=== PATIENT | male | born 1975 | race Caucasian/White ===

== ENCOUNTER 2021-01-07 12:59 | Inpatient (IN) | payer OTHER, SELFPAY ==
[2021-01-07] VITALS (11 sets, daily range): BP systolic 158–213; BP diastolic 88–132; PULSE 64–94; RESP 16; TEMP 37; O2SAT 96–99; BMI 36.1
--- NOTE | ~2021-01-07 | CT_ITS ---
EXAMINATION: CT ANGIOGRAM HEAD CT ANGIOGRAM NECK CLINICAL INFORMATION: Multi territorial stroke. COMPARISON: Brain MRI from 01/07/2021. TECHNIQUE: Initial noncontrast accountant cost imaging of the head and neck was performed. Noncontrast head CT was also performed. Test bolus sequences followed by intravenous administration 70 mL of Omnipaque 350. Helical imaging was performed in the axial plane from the aortic arch to the skull vertex. Delayed postcontrast imaging of the head was also performed. The data was processed at the electro mechanical technologist's workstation for generation of MIP sequences. Angled MIPs and volume rendered reformatted images were also generated at an offline 3D workstation. Stenoses are assessed in accordance with NASCET criteria unless otherwise indicated. This CT examination was performed using dose optimization techniques as appropriate, variously including the following: *Automated exposure control. *Adjustment of mA and/or kV according to patient size (this includes techniques or standardized protocols for targeted exams where dose is matched to indication/reason for exam; i.e. extremities or head). *Use of iterative reconstruction technique. DLP: 2576 mGy-cm FINDINGS: CT Head: Regions of hypoattenuation are again noted in the right aspect of the splenium of the corpus callosum, medial aspect of the right occipital lobe, and parasagittal anterior left frontal lobe. No new loss of quintana-white matter differentiation. There is no evidence of acute intracranial hemorrhage. No additional abnormal attenuation within the brain parenchyma. The ventricles are normal in size and configuration. No evidence for obstructive hydrocephalus. No abnormal mass effect or midline shift. No extra-axial fluid collections. No pathologic intra-axial enhancement or regional oligemia. No acute soft tissue or osseous abnormalities. Odontogenic in infiltration and periapical lucencies associated with the maxillary right 1st premolar. A 2.5 cm polypoid lesion fills the left middle meatus. Mild mucosal thickening in the paranasal sinuses. The mastoid air cells and middle ear cavities are clear. CT Neck: The thyroid gland and remaining cervical soft tissues are within normal limits. No significant abnormalities of the cervical spine. CT Upper Chest: The visualized lung apices and upper mediastinum are within normal limits. Neck CTA: Aortic Arch: Normal contour and caliber. Classic 3 vessel branching pattern of the aortic arch. Great Vessel Origins: No significant stenosis of the branch origins. Right Common Carotid Artery: No focal stenosis or occlusion. Cervical Right Internal Carotid Artery: Normal opacification without focal stenosis or occlusion. Left Common Carotid Artery: No focal stenosis or occlusion. Cervical Left Internal Carotid Artery: Normal opacification without focal stenosis or occlusion. Cervical Right Vertebral Artery: Co-dominant. No focal stenosis or occlusion. Cervical Left Vertebral Artery: Co-dominant. No focal stenosis or occlusion. Brain CTA: Intracranial Internal Carotid Arteries: Mild calcific atherosclerotic disease of the intracranial internal carotid arteries without occlusion or flow-limiting stenosis. Right Anterior Cerebral Artery: Normal A1 segment. Normal opacification of the distal TERESA segments. Left Anterior Cerebral Artery: Normal A1 segment. Normal opacification of the distal TERESA segments. Anterior Communicating Artery: Normal. Right Middle Cerebral Artery: Normal M1 segment of the MCA without focal stenosis or occlusion. Normal arborization of the distal segments. Left Middle Cerebral Artery: Normal M1 segment of the MCA without focal stenosis or occlusion. Normal arborization of the distal segments. Right Vertebral Artery: Normal V4 segment. Normal opacification of the proximal segments of the posterior inferior cerebellar artery. Left Vertebral Artery: Normal V4 segment. Normal opacification of the proximal segments of the posterior inferior cerebellar artery. Basilar Artery: Normal without focal stenosis or occlusion. Normal appearance of the proximal superior cerebellar arteries. Right Posterior Cerebral Artery: Normal P1 segment. Normal opacification of the distal [employer] segments. Left Posterior Cerebral Artery: Normal P1 segment. Normal opacification of the distal [employer] segments. Normal opacification of the superior sagittal, straight, transverse, and sigmoid sinuses. CT/CT angio head neck IMPRESSION: 1. Redemonstrated involving infarcts of the right aspect of the splenium of the corpus callosum, medial aspect of the right occipital lobe, and paracentral anterior left frontal lobe. No evidence of acute intracranial hemorrhage. 2. CTA of the head and neck without proximal occlusion or flow-limiting stenosis.
--- NOTE | ~2021-01-07 | US_ITS ---
EXAMINATION: US EXTRACRANIAL CAROTID DUPLEX, BILATERAL CLINICAL INFORMATION: Acute CVA COMPARISON: None TECHNIQUE: Real-time ultrasound and Doppler techniques (integrating B-mode 2-D vascular images, Doppler spectral analysis and color-flow Doppler imaging) were utilized to interrogate the extracranial carotid arteries, the vertebral arteries and proximal subclavian arteries bilaterally. The degree of stenosis is determined by criteria similar to NASCET. FINDINGS: Right Side: 1. There is very mild fibrocalcific atherosclerotic plaque seen in the bifurcation/proximal ICA region. 2. The common carotid artery PSV proximally is 103 cm/s and distally 79 cm/s. 3. The proximal internal carotid artery velocities are 78 cm/s systolic and 30 cm/s diastolic. 4. The proximal external carotid artery PSV is 87 cm/s. 5. The vertebral artery shows low resistance antegrade flow. 6. The subclavian artery waveforms are multiphasic. Left Side: 1. There is very mild probable calcific atherosclerotic plaque seen in the bifurcation/proximal ICA region. 2. The common carotid artery PSV proximally is 96 cm/s and distally 96 cm/s. 3. The proximal internal carotid artery velocities are 67 cm/s systolic and 32 cm/s diastolic. 4. The proximal external carotid artery PSV is 83 cm/s. 5. The vertebral artery shows low resistance antegrade flow. 6. The subclavian artery waveforms are multiphasic. US/US carotid duplex BI IMPRESSION: 1. RIGHT: No hemodynamically significant luminal diameter narrowing. Mild plaque formation resulting in less than 50% luminal diameter narrowing of the ICA. 2. LEFT: No hemodynamically significant luminal diameter narrowing. Mild plaque formation resulting in less than 50% luminal diameter narrowing of the ICA.
--- NOTE | ~2021-01-07 | MR_ITS ---
EXAMINATION: MR BRAIN WITHOUT AND WITH CONTRAST CLINICAL INFORMATION: Visual changes. Headache. Ischemia. COMPARISON: CT head from 01/07/2021. TECHNIQUE: MRI of the brain was obtained using routine sequences without and following the administration of 10 mL of Gadavist intravenous contrast. FINDINGS: There are regions of restricted diffusion within the right aspect of the splenium of the corpus callosum (extending to the midline) and within the medial aspect of the right occipital lobe. Associated expansile T2 FLAIR hyperintensity in these regions. No additional restricted diffusion There is also a small region of gyral and subcortical white matter edema within the parasagittal aspect of the anterior left frontal lobe associated patchy enhancement in this location without restricted diffusion. No evidence of acute or chronic hemorrhagic products on heme-sensitive imaging. No additional parenchymal signal abnormalities. The ventricles are normal in morphology and size. No hydrocephalus. No midline shift. Flattening of the pituitary gland. No abnormalities of the posterior fossa with normal appearance of the brainstem and cerebellum. Normal positioning of the cerebellar tonsils. Normal arterial and venous vascular flow voids are present. No additional abnormal contrast enhancement. Normal, homogeneous marrow signal. There is a T1 hyperintense well-circumscribed lesion expanding the left middle meatus, measuring 2.3 x 1 x 1.7 cm. Mild mucosal thickening in the remaining paranasal sinuses. No signal abnormalities within the mastoid. MR/MR head/brain wo/w con IMPRESSION: 1. 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 2. Subacute infarction of the parasagittal anterior left frontal lobe. Given the varied vascular territories and age of these abnormalities, findings are suggestive of central embolic phenomenon. 3. Expansile polypoid lesion filling the left middle medius.
--- NOTE | ~2021-01-07 | CT_ITS ---
EXAMINATION: CT HEAD WITHOUT CONTRAST CLINICAL INFORMATION: Visual changes. COMPARISON: None TECHNIQUE: Contiguous axial imaging was performed from the skull base to vertex without intravenous administration of contrast. This CT examination was performed using dose optimization techniques as appropriate, variously including the following: *Automated exposure control *Adjustment of mA and/or kV according to patient size (this includes techniques or standardized protocols for targeted exams where dose is matched to indication/reason for exam; i.e. extremities or head) *Use of iterative reconstruction technique DLP: 728 mGy-cm FINDINGS: There is no evidence of acute intracranial hemorrhage. No abnormal mass effect or midline shift is seen. Dumont to white matter differentiation is well preserved. No extra-axial fluid collections are identified. The ventricles are normal in size. There is a low-attenuation focus seen within the rightward splenium of the corpus callosum, with extension into the medial right occipital region towards the interface of the forceps major and the medial occipital cortex. The osseous structures and soft tissues are normal. The mastoid air cells and visualized portions of the paranasal sinuses are well aerated. CT/CT head/brain wo IV con IMPRESSION: There is abnormal low attenuation change within the rightward aspect of the splenium of the corpus callosum, extending into the interface of the medial occipital cortex and right forceps major. There is no significant associated mass effect. The possibilities of a demyelinating process, such as multiple sclerosis, and ischemia are raised. Infectious etiologies (including aspergillosis) and neoplasm (including glioma) are possible but less likely given the lack of associated mass effect. No acute hemorrhage is noted. Strongly recommend further evaluation at this time with MRI (with and without contrast).
[2021-01-07 14:16] LABS: Glucose, Whole Blood 500 mg/dL (60-115)
[2021-01-07 14:23] LABS: MANUAL DIFF FLAG NO
[2021-01-07 14:31] LABS: Basophils Absolute Auto 0.1 X10*3/uL (0.0-0.2); Basophils Percent Auto 0.4 % (0-2); Eosinophils Absolute Auto 0.2 X10*3/uL (0.0-0.4); Eosinophils Percent Auto 1.4 % (0-4); Hematocrit 44.3 % (42-52); Hemoglobin 15.4 g/dl (14.0-18.0); Imm Gran Abs Auto 0.04 X10*3/uL (0.00-0.03); Imm Gran Pct Auto 0.4 % (0.0-0.4); Lymphocytes Absolute Auto 1.9 X10*3/uL (1.2-4.9); Lymphocytes Percent Auto 16.6 % (20-40); Mean Corpuscular HGB Conc 34.8 g/dl (31.0-36.0); Mean Corpuscular Hemoglobin 30.9 pg (27.0-33.0); Mean Corpuscular Volume 88.8 fL (80-98); Mean Platelet Volume 11.4 fL (9.4-12.4); Monocytes Absolute Auto 0.7 X10*3/uL (0.1-1.2); Monocytes Percent Auto 6.1 % (2-11); Neutrophils Absolute Auto 8.4 X10*3/uL (2.0-8.3); Neutrophils Percent Auto 75.1 % (45-73); Platelet Count 210 X10*3/uL (160-400); Red Blood Count 4.99 X10*6/uL (4.60-5.80); Red Cell Distribution Width 11.5 % (11.0-16.0); White Blood Count 11.2 X10*3/uL (4.8-10.8)
--- NOTE | 2021-01-07 14:59 | PC.NURSE ---
NSR on tele, reports frontal headache to middle back of head. Pt states no meds at home x 2-3 months. Hypertensive. Iv established. awaiting ED provider. Pt also reports left eye blurred vision. Other neuros are intact, speech is clear. Family at bedside. Skin pwd.
[2021-01-07 15:02] LABS: Anion Gap 11 (12-20); Blood Urea Nitrogen 11 mg/dL (9-16); Calcium 9.5 mg/dL (8.4-10.2); Carbon Dioxide 27 mmol/L (22-29); Chloride 103 mmol/L (96-108); Creatinine Clr Calc Pharmacy 105.1; Estimated Glomerular Filt Rate > 60; Glucose Random 507 mg/dL (60-115); Potassium 4.2 mmol/L (3.3-5.1); Sodium 137 mmol/L (135-145)
[2021-01-07] MEDS: 0.9 % Sodium Chloride 1,000 ML 999 ML IV ×2 (16:00→17:40)
[2021-01-07 16:11] LABS: Venous Blood Gas Refer to POC result
[2021-01-07 16:12] LABS: VBG Base Excess 0.6 mmol/L; VBG HCO3 24 mmol/L (22-26); VBG pCO2 34 mmHg; VBG pH 7.44 (7.32-7.43); VBG pO2 121 mmHg
[2021-01-07 16:35] LABS: Glucose Urine UA >=1000 MG/DL (NEG); Leukocyte Esterase Urine NEG (NEG); Nitrite Urine NEG (NEG); Urine Blood NEG (NEG); Urine Ketones NEG (NEG); Urine Protein NEG (NEG-TRACE)
[2021-01-07 16:36] LABS: Appearance Urine CLEAR; Color Urine YELLOW
[2021-01-07 16:41] LABS: RBC Urine 0 /HPF (0); Squamous Epithelial Cell Urine 1+ /LPF; WBC Urine 0 /HPF (0-4)
[2021-01-07] MEDS: Insulin Regular, Human 100 UNIT/ML 3 ML VIAL 10 UNIT IVPUSH (16:45)
--- NOTE | 2021-01-07 16:48 | PC.NURSE ---
Steady on feeet to bathroom. UA sent, Another liter started and Insulin given as charted
--- NOTE | 2021-01-07 17:16 | ED_ITS ---
HPI - Neuro Symptoms/Deficit General Chief Complaint: Neuro Symptoms/Deficit Stated Complaint: headache Time Seen by Provider: 01/07/21 15:33 Source: patient Mode of arrival: ambulatory Limitations: no limitations History of Present Illness HPI Narrative: 45-year-old male presents for headache for the past 3-4 days with blurry vision left eye more blurry than right. His headache was gradual in onset, and is a 10/10, and is located in the top of his head. He has been taking Tylenol but it is not helping. Also reports seeing light spots on the side of his vision. He works with his , she states he is losing concentration and has been forgetfulfor the last few days. Patient is diabetic and has high blood pressure, and has not taken his metformin or lisinopril for over 3 months due to insurance issues. No nausea or vomiting, patient does have a headache history. Patient has not had any unilateral weakness, no numbness or tingling, no speech changes. Patient does not have a glucometer at home, he does not check his blood sugars at home. Onset (ago): day(s) (3) Location: other History of same: No Related Data Allergies Allergy/AdvReac Type Severity Reaction Status Date / Time No Known Allergies Allergy Verified 01/07/21 13:58 [No Known Allergies*] Review of Systems Constitutional: Constitutional: Denies body ache(s), Denies chills, Denies fatigue, Denies fever(s), Reports headache(s), Denies malaise and Denies weakness Eyes: Eyes: Reports blurry vision, Reports change in vision, Denies diplopia, Denies floaters, Denies irritation, Denies itchy eyes, Denies loss of peripheral vision, Denies loss of vision, Denies eye pain, Denies seeing flashes, Reports photophobia and Reports spots in vision ENT: Denies vertigo, Denies dizziness, Denies otalgia, Reports headache(s), Denies disequilibrium and Denies sore throat Cardiovascular: Cardiovascular: Denies chest pain, Denies syncope, Denies leg edema, Denies lightheadedness, Denies Loss of Consciousness, Denies palpitations and Denies dyspnea Respiratory: Respiratory: Denies chest congestion, Denies cough and Denies dyspnea Gastrointestinal: Gastrointestinal: Denies abdominal pain, Denies hematochezia, Denies constipation, Denies diarrhea and Denies vomiting Genitourinary: Genitourinary: Reports no additional male genitourinary complaints Musculoskeletal: Musculoskeletal: Reports no additional musculoskeletal complaints and Denies tingling Integumentary/Breasts: Skin/Breast: Denies erythema and Denies rash Neurologic: Denies Abnormal speech present, Denies confusion, Denies vertigo, Denies dizziness, Denies syncope, Reports headache(s), Denies focal weakness, Denies loss of vision, Denies Sensory deficit (Neuro), Denies tingling, Denies disequilibrium and Denies weakness Psychiatric: Psychiatric: Denies anxiety, Denies confusion and Denies depression Endocrine: Endocrine: Denies fatigue and Denies palpitations Allergic/Immunologic: Allergic/Immunologic: Denies itchy eyes PMFSH Past Medical History Medical History Diabetes Hypercholesteremia Hypertension Social History Social History Alcohol intake: current Alcohol intake frequency: holidays/special occasions only Patient Tobacco Use Status: Current everyday Tobacco user Advance Directives: No Advance Directives Information Provided: No Physical Exam Vital Signs: Vital Signs: Last Vital Signs Temp 98.6 F 01/07/21 13:52 Pulse 71 01/07/21 21:08 Resp 16 01/07/21 21:08 BP 158/89 H 01/07/21 21:08 Pulse Ox 98 01/07/21 21:03 Body Mass Index 36.1 Const: General: alert and awake; No confusion Nutritional Appearance: overweight Orientation/consciousness: patient oriented x3 and No confusion Limitations: no limitations and No altered mental status HENMT: Head: Yes normal to inspection, Yes normocephalic and Yes atraumatic Ears: hearing grossly normal bilaterally and external ears normal General nose exam: Normal external nose present Face and sinus: Yes normal facial exam Mouth: mucous membranes dry Throat: Yes posterior oropharynx normal Eyes: Conjunctivae: conjunctivae normal and conjunctival abnormal diffuse (injection) Pupils: Equal, round and reactive pupils present EOM: EOMs intact bilaterally Direct Ophthalmoscopy: photophobia Neck: Neck: Yes full ROM, Yes no lymphadenopathy and Yes supple Resp: Effort & Inspection: normal respiratory effort and able to speak in complete sentences Auscultation: clear to auscultation bilaterally, no crackles, no rales, no rhonchi and no wheezes Cardio: Rate: regular rate Rhythm: regular rhythm Heart sounds: S1 normal heart sound present and S2 normal heart sound present GI: Inspection: Yes normal to inspection Palpation (GI): Soft to palpation, nontender, no guarding and not rigid Percussion: Yes normal to percussion Auscultation: normal bowel sounds Skin: General skin exam: no rashes or lesions noted Neuro: General: patient oriented x3 and No confusion Cranial nerves: Yes CN's II-XII intact bilaterally, Yes Facial sensation intact/muscles of mastication intact, Yes Equal, round and reactive pupils present, Yes Normal accommodation reflex present, Yes Bilaterally intact EOM present, Yes Nystagmus not present, Yes Normal facial strength present, Yes Midline tongue present, Yes Ability to bilaterally rotate head present and Yes Ability to bilaterally elevate shoulders present Cognition (Neuro): normal cognition Speech: No Abnormal speech present Gait exam (Neuro): Normal gait present Motor exam (neuro): 5/5 motor strength present throughout, Pronator motor function not present and no tremor noted Sensory Exam: No Sensory deficit (Neuro) Deep tendon reflexes (DTR's): Right brachioradialis reflex intensity grade: 1+, Left brachioradialis reflex intensity grade: 1+, Right patellar reflex intensity grade: 1+ and Left patellar reflex intensity grade: 1+ Coordination: [id number] test normal, [id number] test normal, tandem gait normal, does not sway with eyes open and Normal rapid alternating movements of the distal lower extremity present (Neuro) Romberg Test: Negative Pupils: Normal pupillary reactivity/response: bilateral Extrem: General: Yes normal to inspection and Yes full ROM Psych: Appearance: grossly normal Affect: normal affect Attitude: cooperative Thought process: Normal thought process present Course Course Course Narrative: 45-year-old male with past medical history of diabetes and hypertension who has not been taking medication for either for over 3 months. Patient has had a headache for the last 3 days, with blurry vision. reports patient is forgetful. On exam, patient has no focal neuro deficits. Lab show white blood cell count of 11.2, potassium 4.2, blood glucose 507. Patient has no anion gap, VBG is 7.44, no ketones in urine. Visual acuity is 20 /30 in both eyes. Gave fluids, insulin, awaiting head CT and anticipated admission. Head CT shows There is abnormal low attenuation change within the rightward aspect of the splenium of the corpus callosum, extending into the interface of the medial occipital cortex and right forceps major. There is no significant associated mass effect. The possibilities of a demyelinating process, such as multiple sclerosis, and ischemia are raised. Infectious etiologies (including aspergillosis) and neoplasm (including glioma) are possible but less likely given the lack of associated mass effect. No acute hemorrhage is noted. Strongly recommend further evaluation at this time with MRI (with and without contrast). With insulin, pt's BG is 99 on repeat POC BG. Ordered MRI head/brain Discussed patient with neurologist, he agreed that we should do an MRI to rule out PRES (posterior reversible encephalopathy syndrome) Stated treatment is to treat blood sugar, and hypertension. Patient's blood pressure is now 158/89. MRI shows an acute posterior circulation stroke, and is subacute stroke in the anterior circulation in the left frontal lobe which could be older. Patient does not have process. Patient will need a CTA but it is not emergent right now. Patient is outside the intervention window. We discussed with Dr Loving who would like pt to be admitted Dr Maddox will admit MDM - Neuro Symptoms/Deficit Lab Data Result diagrams: 01/07/21 14:18 01/07/21 14:18 Labs: Lab Results 01/07/21 01/07/21 01/07/21 Range/Units 14:13 14:18 14:18 WBC 11.2 H (4.8-10.8) X10*3/uL RBC 4.99 (4.60-5.80) X10*6/uL Hgb 15.4 (14.0-18.0) g/dl Hct 44.3 (42-52) % MCV 88.8 (80-98) fL MCH 30.9 (27.0-33.0) pg MCHC 34.8 (31.0-36.0) g/dl RDW 11.5 (11.0-16.0) % Plt Count 210 (160-400) X10*3/uL MPV 11.4 (9.4-12.4) fL Immature Gran % (Auto) 0.4 (0.0-0.4) % Neut % (Auto) 75.1 H (45-73) % Lymph % (Auto) 16.6 L (20-40) % Radford % (Auto) 6.1 (2-11) % Eos % (Auto) 1.4 (0-4) % Baso % (Auto) 0.4 (0-2) % Lymph # (Auto) 1.9 (1.2-4.9) X10*3/uL Radford # (Auto) 0.7 (0.1-1.2) X10*3/uL Eos # (Auto) 0.2 (0.0-0.4) X10*3/uL Baso # (Auto) 0.1 (0.0-0.2) X10*3/uL Abs Immat Gran (auto) 0.04 H (0.00-0.03) X10*3/uL Absolute Neuts (auto) 8.4 H (2.0-8.3) X10*3/uL Absolute Nucleated RBC 0.000 (0.0-0.012) X10*3/uL Nucleated RBC % (auto) 0.0 (0.0-0.2) /100WBC VBG pH (7.32-7.43) VBG pCO2 mmHg VBG pO2 mmHg VBG HCO3 (22-26) mmol/L VBG O2 Saturation % VBG Base Excess mmol/L Sodium 137 (135-145) mmol/L Potassium 4.2 (3.3-5.1) mmol/L Chloride 103 (96-108) mmol/L Carbon Dioxide 27 (22-29) mmol/L Anion Gap 11 L (12-20) BUN 11 (9-16) mg/dL Creatinine 1.19 (0.5-1.4) mg/dL Estim Creat Clear Calc 105.1 Estimated GFR > 60 POC Glucose 500 H* (60-115) mg/dL Random Glucose 507 H* (60-115) mg/dL Calcium 9.5 (8.4-10.2) mg/dL Beta-Hydroxybutyrate/Acetoacetate Urine Color Urine Appearance Urine pH (5.0-8.0) Ur Specific Rodman (1.005-1.025) Urine Protein (NEG-TRACE) MG/DL Urine Glucose (UA) (NEG) MG/DL Urine Ketones (NEG) MG/DL Urine Blood (NEG) Urine Nitrite (NEG) Ur Leukocyte Esterase (NEG) Urine RBC (0) /HPF Urine WBC (0-4) /HPF Ur Squamous Epith Cells /LPF Urine Bacteria /LPF COVID-19 ([facility]) (Negative) COVID-19 Clin Com 01/07/21 01/07/21 01/07/21 Range/Units 16:01 16:07 16:27 WBC (4.8-10.8) X10*3/uL RBC (4.60-5.80) X10*6/uL Hgb (14.0-18.0) g/dl Hct (42-52) % MCV (80-98) fL MCH (27.0-33.0) pg MCHC (31.0-36.0) g/dl RDW (11.0-16.0) % Plt Count (160-400) X10*3/uL MPV (9.4-12.4) fL Immature Gran % (Auto) (0.0-0.4) % Neut % (Auto) (45-73) % Lymph % (Auto) (20-40) % Radford % (Auto) (2-11) % Eos % (Auto) (0-4) % Baso % (Auto) (0-2) % Lymph # (Auto) (1.2-4.9) X10*3/uL Radford # (Auto) (0.1-1.2) X10*3/uL Eos # (Auto) (0.0-0.4) X10*3/uL Baso # (Auto) (0.0-0.2) X10*3/uL Abs Immat Gran (auto) (0.00-0.03) X10*3/uL Absolute Neuts (auto) (2.0-8.3) X10*3/uL Absolute Nucleated RBC (0.0-0.012) X10*3/uL Nucleated RBC % (auto) (0.0-0.2) /100WBC VBG pH 7.44 H (7.32-7.43) VBG pCO2 34 mmHg VBG pO2 121 mmHg VBG HCO3 24 (22-26) mmol/L VBG O2 Saturation 99.0 % VBG Base Excess 0.6 mmol/L Sodium (135-145) mmol/L Potassium (3.3-5.1) mmol/L Chloride (96-108) mmol/L Carbon Dioxide (22-29) mmol/L Anion Gap (12-20) BUN (9-16) mg/dL Creatinine (0.5-1.4) mg/dL Estim Creat Clear Calc Estimated GFR POC Glucose (60-115) mg/dL Random Glucose (60-115) mg/dL Calcium (8.4-10.2) mg/dL Beta-Hydroxybutyrate/Acetoacetate Cancelled Urine Color YELLOW Urine Appearance CLEAR Urine pH 6.0 (5.0-8.0) Ur Specific Rodman 1.010 (1.005-1.025) Urine Protein NEG (NEG-TRACE) MG/DL Urine Glucose (UA) >=1000 H (NEG) MG/DL Urine Ketones NEG (NEG) MG/DL Urine Blood NEG (NEG) Urine Nitrite NEG (NEG) Ur Leukocyte Esterase NEG (NEG) Urine RBC 0 (0) /HPF Urine WBC 0 (0-4) /HPF Ur Squamous Epith Cells 1+ /LPF Urine Bacteria NONE /LPF COVID-19 ([facility]) (Negative) COVID-19 Clin Com 01/07/21 01/07/21 Range/Units 17:36 18:01 WBC (4.8-10.8) X10*3/uL RBC (4.60-5.80) X10*6/uL Hgb (14.0-18.0) g/dl Hct (42-52) % MCV (80-98) fL MCH (27.0-33.0) pg MCHC (31.0-36.0) g/dl RDW (11.0-16.0) % Plt Count (160-400) X10*3/uL MPV (9.4-12.4) fL Immature Gran % (Auto) (0.0-0.4) % Neut % (Auto) (45-73) % Lymph % (Auto) (20-40) % Radford % (Auto) (2-11) % Eos % (Auto) (0-4) % Baso % (Auto) (0-2) % Lymph # (Auto) (1.2-4.9) X10*3/uL Radford # (Auto) (0.1-1.2) X10*3/uL Eos # (Auto) (0.0-0.4) X10*3/uL Baso # (Auto) (0.0-0.2) X10*3/uL Abs Immat Gran (auto) (0.00-0.03) X10*3/uL Absolute Neuts (auto) (2.0-8.3) X10*3/uL Absolute Nucleated RBC (0.0-0.012) X10*3/uL Nucleated RBC % (auto) (0.0-0.2) /100WBC VBG pH (7.32-7.43) VBG pCO2 mmHg VBG pO2 mmHg VBG HCO3 (22-26) mmol/L VBG O2 Saturation % VBG Base Excess mmol/L Sodium (135-145) mmol/L Potassium (3.3-5.1) mmol/L Chloride (96-108) mmol/L Carbon Dioxide (22-29) mmol/L Anion Gap (12-20) BUN (9-16) mg/dL Creatinine (0.5-1.4) mg/dL Estim Creat Clear Calc Estimated GFR POC Glucose 99 (60-115) mg/dL Random Glucose (60-115) mg/dL Calcium (8.4-10.2) mg/dL Beta-Hydroxybutyrate/Acetoacetate Urine Color Urine Appearance Urine pH (5.0-8.0) Ur Specific Rodman (1.005-1.025) Urine Protein (NEG-TRACE) MG/DL Urine Glucose (UA) (NEG) MG/DL Urine Ketones (NEG) MG/DL Urine Blood (NEG) Urine Nitrite (NEG) Ur Leukocyte Esterase (NEG) Urine RBC (0) /HPF Urine WBC (0-4) /HPF Ur Squamous Epith Cells /LPF Urine Bacteria /LPF COVID-19 ([facility]) Negative (Negative) COVID-19 Clin Com See Note Discharge Plan Discharge Patient Disposition: Admitted As Inpatient
[2021-01-07 17:40] LABS: Glucose, Whole Blood 99 mg/dL (60-115)
[2021-01-07] MEDS: Morphine Sulfate 4 MG/ML CARTRIDGE IVPUSH (17:40)
--- NOTE | 2021-01-07 17:41 | PC.NURSE ---
Recheck POC 99, Treva BRYSON aware. Morphine given for decreased pain level of 8/10 for headache. Pt sleeping upon entering room.
[2021-01-07 18:25] LABS: COVID-19 Test Negative (Negative)
[2021-01-07] MEDS: Labetalol HCL 100 MG/20 ML VIAL 10 MG IVPUSH ×2 (19:06→23:24)
--- NOTE | 2021-01-07 19:21 | PC.NURSE ---
pt off to MRI
--- NOTE | 2021-01-07 21:00 | PC.NURSE ---
pt back from MRI
--- NOTE | 2021-01-07 21:29 | PC.NURSE ---
MD at bedside to discuss MRI results plan for admission pt and family aware of plan for admission. pt and family have no questions or concerns at this time.
[2021-01-07] MEDS: Aspirin 325 MG TABLET PO (21:42)
--- NOTE | 2021-01-07 23:07 | PC.NURSE ---
BP 213/132 Hop[facility]ist (Jenny) notified
[2021-01-07 23:28] LABS: Glucose, Whole Blood 306 mg/dL (60-115)
[2021-01-08] VITALS (16 sets, daily range): BP systolic 153–186; BP diastolic 80–103; PULSE 61–78; RESP 16–20; TEMP 36.2–36.6; O2SAT 96–99; BMI 36.0
[2021-01-08] MEDS: 0.9 % Sodium Chloride Flush 3 ML SYRINGE IVFLUSH ×4 (00:11→21:53)
[2021-01-08] MEDS: Insulin Lispro 100 UNIT/ML 3 ML VIAL SUBCUT ×4 (00:18→21:51)
--- NOTE | 2021-01-08 01:27 | PC.NURSE ---
POC 340 Hospitalist (Jenny) aware No new orders at this time.
[2021-01-08 01:29] LABS: Glucose, Whole Blood 340 mg/dL (60-115)
--- NOTE | 2021-01-08 02:24 | P.HPHOSP_ITS ---
History of Present Illness Date of Service: 01/07/21 Chief Complaint: left eye blurry vision 45-year-old Kazakh-speaking male with history of diabetes mellitus type 2 (non- insulin dependent), hypertension, hyperlipidemia, tobacco use disorder, who ran out of his medication medications about 3 months ago and therefore has not been taking any medications (due to medical insurance issues), who presents with 3 days of headache and left eye blurriness. 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 Patient tells me that he ran out of his medications 3 months ago, and has not refilled them due to insurance issues. Three days ago, he started experiencing headache, as well as blurriness in his eyes (left far worse than right). The patient's boss (from work) actually accompanied the patient to the ED, and tells me that she started noticing the patient was making mistakes that are uncharacteristic for him, and when she found that he was having some blurry vision, insisted he come to the ED. otherwise, the patient denies weakness, numbness, tingling, chest pain, shortness of breath, fever, chills, nausea, vomiting, abdominal pain or diarrhea. In the ED, pertinent findings include: Blood pressure as high as 213/132, white blood cell 11.2, glucose level 507, CT of the head showing abnormalities (please see official report for details), MRI of the brain showing acute infarction of the splenium of the corpus callosum and medial aspect of the right occipital lobe, subacute infarction of the parasagittal anterior left frontal lobe, given the very vascular territories and H of these abnormalities, findings are suggestive of central embolic phenomenon (please see official report for full details). The patient is being admitted for acute stroke. In the ED, he was treated with 10 units of IV insulin, 2 L IV fluid bolus, 10 mg of labetalol IV, and full-dose aspirin. Review of Systems Constitutional: Constitutional: Denies chills, Denies fatigue, Denies fever(s) , Reports headache(s), Denies weakness and Denies weight loss Eyes: Eyes: Reports blurry vision and Reports change in vision ENT: Denies dysphagia, Denies vertigo, Denies dizziness, Reports headache(s), Denies hearing loss, Denies lip swelling and Denies sore throat Cardiovascular: Cardiovascular: Denies chest pain, Denies leg edema, Denies lightheadedness, Denies palpitations and Denies dyspnea Respiratory: Respiratory: Denies no additional respiratory complaints, Denies cough, Denies dyspnea and Denies wheezing Gastrointestinal: Gastrointestinal: Denies coffee ground emesis, Denies constipation, Denies dysphagia, Denies diarrhea, Denies nausea and Denies vomiting Genitourinary: Genitourinary: Denies dysuria Musculoskeletal: Musculoskeletal: Denies arthralgias, Denies muscle weakness, Denies numbness and Denies tingling Integumentary/Breasts: Skin/Breast: Denies bleeding lesions, Denies new lesions and Denies rash Neurologic: Denies vertigo, Denies dizziness, Reports headache(s), Denies numbness, Denies tingling and Denies weakness Psychiatric: Psychiatric: Denies anxiety and Denies depression Endocrine: Endocrine: Denies cold intolerance, Denies fatigue, Denies heat intolerance and Denies palpitations Hematologic/Lymphatic: Hematologic/Lymphatic: Denies easy bleeding, Denies ea sy bruising and Denies lymphadenopathy Allergic/Immunologic: Allergic/Immunologic: Denies lip swelling and Denies wheezing [facility] Medical History (Updated 01/08/21 @ 02:45 by Luis Blake MD) Diabetes Hypercholesteremia Hypertension Pertinent family history: Father with diabetes mellitus. Mother was healthy. For Social History Alcohol intake: current Alcohol intake frequency: holidays/special occasions on ly Patient Tobacco Use Status: Current everyday Tobacco user Advance Directives: No Advance Directives Information Provided: No Meds Allergies Allergy/AdvReac Type Severity Reaction Status Date / Time No Known Allergies Allergy Verified 01/07/21 13:58 [No Known Allergies*] Active Medications: Current Medications Generic Name Dose Route Start Last Admin Trade Name Freq PRN Reason Stop Dose Admin Acetaminophen 650 mg 01/07/21 23:06 Acetaminophen 325 Mg Tablet PO Q6H PRN Pain, Mild (Pain Scale 1-3) Aspirin 325 mg 01/08/21 09:00 Aspirin 325 Mg Tablet PO DAILY MIKIE Dextrose 25 gm 01/07/21 23:11 Dextrose 50 % 25 Gm/50 Ml Vial IVPUSH Q15M PRN per Hypoglycemia Standing Ord. Protocol Glucose 15 gm 01/07/21 23:11 Glucose Gel 15 Gm Gel..Gram. PO Q15M PRN per Hypoglycemia Standing Ord. Protocol Insulin Human Lispro 0 unit 01/08/21 07:30 01/08/21 00:18 Insulin Lispro 100 Unit/Ml 3 Ml Vial SUBCUT 8 unit QIDACHS MIKIE Administration Protocol Labetalol HCl 10 mg 01/07/21 23:13 01/07/21 23:24 Labetalol Hcl 100 Mg/20 Ml Vial IVPUSH 10 mg Q1H PRN Administration Give for SBP > 160 AND HR > 70 Protocol Pravastatin Sodium 40 mg 01/08/21 09:00 Pravastatin Sodium 40 Mg Tablet PO DAILY [facility] Sodium Chloride 3 ml 01/08/21 00:00 01/08/21 00:11 0.9 % Sodium Chloride Flush 3 Ml Syringe IVFLUSH 3 ml QSHIFT [facility] Administration Home Medications Medication Instructions Recorded Confirmed Last Taken Type No Known Home Meds 01/08/21 01/08/21 Unknown History Physical Exam Vital Signs and Narrative: Vital Signs: Last Vital Signs Temp 98.6 F 01/07/21 13:52 Pulse 69 01/08/21 00:48 Resp 16 01/08/21 00:48 BP 169/84 H 01/08/21 00:48 Pulse Ox 98 01/08/21 00:47 Body Mass Index 36.1 Const: General: no acute distress, well developed and alert HENMT: Face and sinus: Yes normal facial exam and Yes face symmetric Mouth: Normal oral and palatal mucosa present and moist mucous membranes Throat: Yes posterior oropharynx normal and Yes tonsils normal Eyes: General: appearance normal, both eyes and all related structures Alignment and Position: alignment normal and position normal Sclerae: sclerae normal Pupils: Equal, round and reactive pupils present EOM: EOMs intact bilaterally Neck: Yes normal visual inspection, Yes full ROM and Yes no lymphadenopathy Lymphatic: no lymphadenopathy noted Chest: Chest palpation & inspection: normal inspection of the chest, no tenderness and No rash Resp: Effort & Inspection: normal respiratory effort and able to speak in complete sentences Auscultation: clear to auscultation bilaterally, no crackles, no rales, no rhonchi and no wheezes Cardio: Rate: regular rate Rhythm: regular rhythm Heart sounds: S1 normal heart sound present, S2 normal heart sound present, no murmurs and no rubs GI: Inspection: No distended Palpation (GI): Soft to palpation and nontender Percussion: No tympanic to percussion Auscultation: normal bowel sounds Skin: Rashes: no rashes Trauma: no lacerations or abrasions Wounds: no wounds Neuro: Other: Patient with some blurry vision in the left eye, otherwise cranial nerves were intact, no other neurologic deficits found. Cranial nerves: Yes CN's II-XII intact bilaterally, Yes Equal, round and reactive pupils present and Yes Bilaterally intact EOM present Extrem: General: Yes full ROM and Yes no pedal edema Psych: Appearance: grossly normal Mental Status: mental status grossly normal Speech and movement: Normal speech and movement present Affect: normal affect Thought process: Normal thought process present Results Labs CBC and Chem 7: 01/07/21 14:18 01/07/21 14:18 Labs: Laboratory Results - last 24 hr 01/07/21 01/07/21 01/07/21 14:13 14:18 14:18 MCV 88.8 MCH 30.9 MCHC 34.8 RDW 11.5 Plt Count 210 MPV 11.4 Immature Gran % (Auto) 0.4 Neut % (Auto) 75.1 H Lymph % (Auto) 16.6 L [place] % (Auto) 6.1 Eos % (Auto) 1.4 Baso % (Auto) 0.4 Lymph # (Auto) 1.9 [place] # (Auto) 0.7 Eos # (Auto) 0.2 Baso # (Auto) 0.1 Abs Immat Gran (auto) 0.04 H Absolute Neuts (auto) 8.4 H Absolute Nucleated RBC 0.000 Nucleated RBC % (auto) 0.0 VBG pH VBG pCO2 VBG pO2 VBG HCO3 VBG O2 Saturation VBG Base Excess Anion Gap 11 L Estim Creat Clear Calc 105.1 Estimated GFR > 60 POC Glucose 500 H* Random Glucose 507 H* Calcium 9.5 Beta-Hydroxybutyrate/Acetoacetate Urine Color Urine Appearance Urine pH Ur Specific [place] Urine Protein Urine Glucose (UA) Urine Ketones Urine Blood Urine Nitrite Ur Leukocyte Esterase Urine RBC Urine WBC Ur Squamous Epith Cells Urine Bacteria COVID-19 ([facility]) COVID-19 Clin Com 01/07/21 01/07/21 01/07/21 16:01 16:07 16:27 MCV MCH MCHC RDW Plt Count MPV Immature Gran % (Auto) Neut % (Auto) Lymph % (Auto) [place] % (Auto) Eos % (Auto) Baso % (Auto) Lymph # (Auto) [place] # (Auto) Eos # (Auto) Baso # (Auto) Abs Immat Gran (auto) Absolute Neuts (auto) Absolute Nucleated RBC Nucleated RBC % (auto) VBG pH 7.44 H VBG pCO2 34 VBG pO2 121 VBG HCO3 24 VBG O2 Saturation 99.0 VBG Base Excess 0.6 Anion Gap Estim Creat Clear Calc Estimated GFR POC Glucose Random Glucose Calcium Beta-Hydroxybutyrate/Acetoacetate Cancelled Urine Color YELLOW Urine Appearance CLEAR Urine pH 6.0 Ur Specific [place] 1.010 Urine Protein NEG Urine Glucose (UA) >=1000 H Urine Ketones NEG Urine Blood NEG Urine Nitrite NEG Ur Leukocyte Esterase NEG Urine RBC 0 Urine WBC 0 Ur Squamous Epith Cells 1+ Urine Bacteria NONE COVID-19 ([facility]) COVID-19 Clin Com 01/07/21 01/07/21 01/07/21 17:36 18:01 23:24 MCV MCH MCHC RDW Plt Count MPV Immature Gran % (Auto) Neut % (Auto) Lymph % (Auto) [place] % (Auto) Eos % (Auto) Baso % (Auto) Lymph # (Auto) [place] # (Auto) Eos # (Auto) Baso # (Auto) Abs Immat Gran (auto) Absolute Neuts (auto) Absolute Nucleated RBC Nucleated RBC % (auto) VBG pH VBG pCO2 VBG pO2 VBG HCO3 VBG O2 Saturation VBG Base Excess Anion Gap Estim Creat Clear Calc Estimated GFR POC Glucose 99 306 H Random Glucose Calcium Beta-Hydroxybutyrate/Acetoacetate Urine Color Urine Appearance Urine pH Ur Specific [place] Urine Protein Urine Glucose (UA) Urine Ketones Urine Blood Urine Nitrite Ur Leukocyte Esterase Urine RBC Urine WBC Ur Squamous Epith Cells Urine Bacteria COVID-19 ([facility]) Negative COVID-19 Clin Com See Note 01/08/21 01:25 MCV MCH MCHC RDW Plt Count MPV Immature Gran % (Auto) Neut % (Auto) Lymph % (Auto) [place] % (Auto) Eos % (Auto) Baso % (Auto) Lymph # (Auto) [place] # (Auto) Eos # (Auto) Baso # (Auto) Abs Immat Gran (auto) Absolute Neuts (auto) Absolute Nucleated RBC Nucleated RBC % (auto) VBG pH VBG pCO2 VBG pO2 VBG HCO3 VBG O2 Saturation VBG Base Excess Anion Gap Estim Creat Clear Calc Estimated GFR POC Glucose 340 H Random Glucose Calcium Beta-Hydroxybutyrate/Acetoacetate Urine Color Urine Appearance Urine pH Ur Specific [place] Urine Protein Urine Glucose (UA) Urine Ketones Urine Blood Urine Nitrite Ur Leukocyte Esterase Urine RBC Urine WBC Ur Squamous Epith Cells Urine Bacteria COVID-19 ([facility]) COVID-19 Clin Com Imaging Radiologist's Impressions: Impressions Head CT 01/07/21 16:20 IMPRESSION: There is abnormal low attenuation change within the rightward aspect of the splenium of the corpus callosum, extending into the interface of the medial occipital cortex and right forceps major. There is no significant associated mass effect. The possibilities of a demyelinating process, such as multiple sclerosis, and ischemia are raised. Infectious etiologies (including aspergillosis) and neoplasm (including glioma) are possible but less likely given the lack of associated mass effect. No acute hemorrhage is noted. Strongly recommend further evaluation at this time with MRI (with and without contrast). Brain MRI 01/07/21 17:33 IMPRESSION: 1. 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 2. Subacute infarction of the parasagittal anterior left frontal lobe. Given the varied vascular territories and age of these abnormalities, findings are suggestive of central embolic phenomenon. 3. Expansile polypoid lesion filling the left middle medius. Assessment and Plan (1) Cerebrovascular accident: Qualifiers: CVA mechanism: unspecified Qualified Code(s): I63.9 - Cerebral infarction, unspecified Status: Acute (2) Hyperglycemia due to type 2 diabetes mellitus: Status: Acute (3) Uncontrolled hypertension: Status: Acute (4) Medical non-compliance: Status: Acute Acute stroke:: -as seen on MRI of the brain -stroke order set implemented: Neurology checks, Neurology consult, full-dose aspirin, echocardiogram, carotid Dopplers -no permissive hypertension since the patient has been having symptoms for days -treatment of hyperglycemia and hypertension as per below Hyperglycemia due to diabetes mellitus type 2: -patient started on insulin sliding scale with blood sugar checks -hemoglobin A1c ordered -patient has not been taking his medications for the past 3 months due to health insurance issues. -case management consult -patient does not currently remember what his home medications were Uncontrolled hypertension: -patient has not been taking his medications for the past 3 months due to health insurance issues -case management consult as per above -started patient on IV labetalol as needed for systolic blood pressures over 160 -will start patient on amlodipine 5 mg daily (patient does not remember what medications he was taking) Medical noncompliance: -patient was not taking his medications for the past 3 months secondary to the fact that the patient was having difficulty with his health insurance -case management consult placed FEN: Cardiac diet CODE STATUS: FULL CODE DISPO: Admit to Inpatient. Quality Stroke Does the patient have a stroke diagnosis?: Yes Reason for No Anti-thrombotic by Day Two: N/A - Med Ordered VTE Prior VTE?: No VTE Risk Level:: Medical - low VTE Device Contraindication: N/A - Device Ordered VTE Drug Contraindication: Treatment Not Indicated
--- NOTE | 2021-01-08 02:25 | PC.NURSE ---
pt states he has not taken home medications in 3 months, unable to recall what meds he was taking and there are no pharmacy records in the system. unable to be reached in order to obtain med list. Med rec done by this nurse no known home medications until med list can be obtained. Hospitalist aware
--- NOTE | 2021-01-08 06:08 | PC.NURSE ---
BP 176/92 HR 62 per Labetalol protocol, med is to be given for SBP >160 and held for HR <70 hospitalist notified. per hospitalist, hold labetalol at this time.
[2021-01-08 06:58] LABS: MANUAL DIFF FLAG NO
[2021-01-08 07:02] LABS: Basophils Absolute Auto 0.1 X10*3/uL (0.0-0.2); Basophils Percent Auto 0.4 % (0-2); Eosinophils Absolute Auto 0.2 X10*3/uL (0.0-0.4); Eosinophils Percent Auto 1.8 % (0-4); Hematocrit 41.4 % (42-52); Hemoglobin 14.5 g/dl (14.0-18.0); Imm Gran Abs Auto 0.04 X10*3/uL (0.00-0.03); Imm Gran Pct Auto 0.3 % (0.0-0.4); Lymphocytes Absolute Auto 3.2 X10*3/uL (1.2-4.9); Lymphocytes Percent Auto 27.4 % (20-40); Mean Corpuscular Volume 88.5 fL (80-98); Mean Platelet Volume 11.3 fL (9.4-12.4); Monocytes Absolute Auto 0.8 X10*3/uL (0.1-1.2); Monocytes Percent Auto 6.5 % (2-11); Neutrophils Absolute Auto 7.4 X10*3/uL (2.0-8.3); Neutrophils Percent Auto 63.6 % (45-73); Platelet Count 197 X10*3/uL (160-400); Red Blood Count 4.68 X10*6/uL (4.60-5.80); Red Cell Distribution Width 11.5 % (11.0-16.0); White Blood Count 11.7 X10*3/uL (4.8-10.8)
[2021-01-08 07:07] LABS: Glucose, Whole Blood 242 mg/dL (60-115)
[2021-01-08 07:31] LABS: Anion Gap 11 (12-20); Blood Urea Nitrogen 12 mg/dL (9-16); Calcium 9.1 mg/dL (8.4-10.2); Carbon Dioxide 26 mmol/L (22-29); Chloride 105 mmol/L (96-108); Cholesterol 159 mg/dL; Creatinine Clr Calc Pharmacy 145.4; Estimated Glomerular Filt Rate > 60; Glucose Random 233 mg/dL (60-115); HDL Cholesterol 31 mg/dL; LDL Cholesterol Calculated 106 mg/dl; Potassium 3.4 mmol/L (3.3-5.1); Sodium 139 mmol/L (135-145); Triglycerides 111 mg/dL
[2021-01-08] MEDS: hydrALAZINE HCl 20 MG/ML VIAL 10 MG IVPUSH (07:34)
[2021-01-08] MEDS: Aspirin 325 MG TABLET PO (07:36)
[2021-01-08] MEDS: amLODIPine Besylate 5 MG TABLET PO (07:37)
[2021-01-08] MEDS: Pravastatin Sodium 40 MG TABLET PO (07:38)
--- NOTE | 2021-01-08 07:44 | PC.NURSE ---
Pt alert and oriented x3. B/P high 170s over low 100s. no c/o chest pain, no c/o sob/difficulty breathing, no headache/dizziness. Neuros intact. Pt ambulated to restroom without difficulty. POC 242 -insulin coverage given per sliding scale. breakfast provided. Physical Therapy and Occupational Therapy at bedside. Bed assignment pending.
[2021-01-08 08:00] LABS: Estimated Average Glucose 306 mg/dL; Hemoglobin A1c % 12.3 %
--- NOTE | 2021-01-08 08:42 | PC.NURSE ---
This blurb writer gave report to receiving RN Jama. Pt will will be transported by advanced practice nurse.
[2021-01-08 08:45] LABS: Troponin-I High Sensitivity 4.6 ng/L (<3.5-35.0)
--- NOTE | 2021-01-08 09:00 | CA_ITS ---
Transthoracic Echocardiogram Patient (Last, First, Middle): Tito Toussaint, Gender: Male Date of : 1975 Age: 45 Procedure Date: 01/08/2021 Procedure Type: Transthoracic Echocardiogram Location: S3E Height: 182.88 cm Weight: 120.66 kg BSA: 2.40 m2 Heart Rate: bpm BP: 176 / 92 mmHg Newspaper Delivery Driver: ARPAN Bernstein MD: Luis Blake MD Apprentice Painter Hand: Brad Maher MD Symptoms: Stroke Study Quality: Fair/CONTRAST ECG Rhythm: Sinus Conclusions: - 1. Normal LV systolic function with mild LVH with LVEF of 60 65% 2. Mildly dilated left atrium 3. Normal cardiac valvular Doppler 4. Normal RV systolic pressure 5. No pericardial effusion Findings Procedure Information Contrast agent, definity, is being given per protocol without apparent complications. Left Ventricle Normal left ventricular size and systolic function. There is mildly increased left ventricular wall thickness. The visually estimated ejection fraction is between 60-65%. Spectral Doppler is indicative of a normal filling pattern. Right Ventricle Normal right ventricular cavity size and systolic function. Atria The left atrium is mildly dilated. There is no evidence of interatrial shunt. The right atrium is normal in size. Aortic Valve Normal aortic valve structure and function. There is no aortic valve stenosis. There is no aortic valve regurgitation. Mitral Valve Normal mitral valve structure and function. There is trace mitral valve regurgitation. There is no mitral valve stenosis. Pulmonic Valve The pulmonic valve is likely normal. Tricuspid Valve Normal tricuspid valve structure. There is trace tricuspid valve regurgitation. The right ventricular systolic pressure is normal. The right ventricular systolic pressure is 18 mmHg. Normal right atrial pressure. There is no evidence of pulmonary hypertension. Great Vessels All visible segments of the aorta are normal in size. The pulmonary artery was not well visualized. Venous The inferior vena cava is normal in size and collapses greater than 50% with inspiration. Pericardium/Pleural There is no evidence of pericardial effusion. Prior Study Comparison No prior study available for comparison. Measurements 2D Linear Measurements IVSd: 1.17 0.6-0.9/0.6-1.0 cm LVIDd: 5.61 3.9-5.3/4.2-5.9 cm LVIDd Index: 2.34 2.4-3.2/2.2-3.1 cm/m2 LVIDs: 3.41 2.0-3.6 cm LVPWd: 1.19 0.7-1.1 cm Ao Root: 4.00 2.1-3.5 cm LA Diam: 4.00 2.7-3.8/3.0-4.0 cm LAIDs Index: 1.67 1.5-2.3 cm/m2 LV Mass: 342.89 67-162/88-224 g LV Mass Index: 142.87 43-95/49-115 g/m2 LVOT Diam: 2.10 3.0+(-)1.3 cm 2D Systolic Function EF 4C: 59.60 >55% EF 2C: 64.30 >55% EF BiP: 62.60 >55% Mitral Valve MV Pk E: 1.06 MV PK A: 0.63 MV Decel Time: 257.00 E/A: 1.70 E'Lateral: 9.68 E'Medial: 7.83 E/E' Med: 13.50 E/E' Lat: 11.00 PHT: 75.00 MVA PHT: 2.93 Decel [place]: 4.12 Aortic Valve AoV Pk [place]: 1.81 AoV Mn [place]: 1.29 AoV VTI: 0.34 AoV Pk Grad: 13.00 Aov Mn Grad: 7.00 SAI Cont.VTI: 2.38 LVOT LVOT Pk [place]: 1.00 LVOT Mn [place]: 0.74 LVOT VTI: 0.23 LVOT Pk Grad: 4.00 LVOT Mn Grad: 2.00 LVOT Diam: 2.10 LVOT Area: 3.46 Diastolic Function MV Pk E: 1.06 MV Pk A: 0.63 E/A: 1.70 E'Medial: 7.83 E/E' Med: 13.50 E' Laterial: 9.68 E/E' Lat: 11.00 Right Ventricle TAPSE (mm): 1.97 TVS' [place]: 13.20 Tricuspid Valve TR Pk [place]: 1.93 TR Pk Grad: 15.00 RA Press: 3.00 RVSP: 18.00 Great Vessels Aorta Ao Root-2D: 4.00 2.0-3.7 cm Ao Asc: 3.30 2.1-3.4 cm Ao Arch: 3.10 Updated in Other Vendor System with Status of Final Brad Maher MD electronically signed on 01/08/2021 2:25:43 PM with status of Final
[2021-01-08 09:06] LABS: Glucose, Whole Blood 285 mg/dL (60-115)
[2021-01-08] MEDS: Metoprolol Tartrate 25 MG TABLET PO ×2 (10:09→21:52)
--- NOTE | 2021-01-08 10:57 | PC.NURSE ---
Skin assessment completed today. No skin issues noted at this time. Will continue to monitor skin.
--- NOTE | 2021-01-08 11:30 | MHC.STROKE ---
Addendum entered by Ching Peterson RN 01/08/21 17:07: SEE DR BOWMAN'S HIS NOTE AND RECOMMENDATIONS, ECHO WITH BUBBLE, CTA H/N, ETC. CASE MANAGEMENT AND COMMUNITY NAVIGATOR TO ASSIST WITH PCP FOLLOW UP, MEDIATION COMPLIANCE. Addendum entered by Ching Peterson RN 01/08/21 17:01: VTE PROPHLAXIS NOT INDICATED DUE TO PATIENT IS FULLY AMBULATORY. Addendum entered by Ching Peterson RN 01/08/21 11:42: CORRECTION: NIHSS = 2, VISION AND SLIGHT NEGLECT ON THE LEFT. Original Note: PATIENT WALK-IN 01/07/21 AT 1229. FOR LEFT EYE BLURRED VISION, MAGANA. SEEN IN THE ED. SCANS DONE. PASSED SWALLOW SCREEN AND ADMITTED TO INPATIENT WITH A CONFIRMED STROKE. I MET WITH THE PATIENT AND HAD AN SENIOR GEOLOGIST PRESENT. NIHSS = 1 LEFT VISUAL FIELD CUT (LEFT SIDE OF BOTH EYES). I CLARIFIED SYMPTOM ONSET TO BE 6-7 DAYS AGO 01/01/21. HE STARTED HAVING TROUBLE CONCENTRATING AND REMEMBERING THINGS, HE HAD BLURRED VISION ON THE LEFT. HE DID CONTINUE TO DRIVE AND NOTICED HE COULD SEE CORRECTLY. HE DID NOT SEEK MEDICAL ATTENTION UNTIL 01/04/21. +CT HEAD AND MRI FOR ISCHEMIC STROKE. NOT ELIGIBLE FOR TPA DUE TO DELAY IN ARRIVAL. HE HAS NOT BEEN TO THE DOCTOR FOR MANY MONTHS. HE IS NOT TAKING ANY MEDICATIONS, HE HAS A HX OF DM TYPE 2, HE USE TO TAKE METFORMIN. NO FAMILY HISTORY OF STROKE, HE DOES SMOKE AND SMOKING CESSATION EDUCATION PROVIDED ALONG WITH STROKE EDUCATION. I REVIEWED A SCREENSHOT OF HIS MRI AND THE LOCATION OF THE STROKE. I ANSWERED ALL OF HIS QUESTIONS AND EXPLAINED THE PLAN OF CARE. I STRESSED THE IMPORTANCE OF FOLLOWING UP WITH HIS PCP, TAKING HIS MEDICATIONS AND WHY HE NEEDS TO DO THIS. HIS INSURANCE IS LISTED A S [place], I ASKED CASE MANAGEMENT TO REFER HIM TO THE COMMUNITY NAVIGATOR FOR THE [facility]ACO PROGRAM. I DID INSTRUCT HIM NOT TO DRIVE, HE SAID THAT WILL BE HARD FOR HIM. 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 HE DENIES DRUG USE, SOME ALCOHOL USE.
[2021-01-08 11:36] LABS: Glucose, Whole Blood 324 mg/dL (60-115)
--- NOTE | 2021-01-08 13:10 | PM.NEUROCN ---
History of Present Illness Data of Consult Service Date: 01/08/21 Primary Care Provider: Kate Kaplan MD [facility] Reason for consult: Headache and blurred vision for 3 days This is a 45-year-old man with a history of poorly controlled hypertension, diabetes, and hyperlipidemia who has been off all medications for about 3 months because of insurance issues came in with a three-day history of some headaches slight confusion and blurred vision on the left side. His CAT scan and MRI showed a right posterior circulation infarct including the splenium and the medial occipital lobe along with the a subacute small left frontal paramedian infarct. His blood pressure was very high and is being controlled. His blood sugar was 500 is now down to 340. No previous history of stroke. No history of known cardiac disease. Review of Systems Constitutional: Constitutional: Denies body ache(s), Denies chills, Denies fatigue, Denies fever(s), Reports headache(s), Denies malaise, Denies weakness and Denies weight loss Eyes: Eyes: Reports blurry vision, Reports change in vision, Denies diplopia, Denies floaters, Denies irritation, Denies itchy eyes, Denies loss of peripheral vision, Denies loss of vision, Denies eye pain, Denies seeing flashes, Reports photophobia and Reports spots in vision ENT: Denies dysphagia, Denies vertigo, Denies dizziness, Denies otalgia, Reports headache(s), Denies hearing loss, Denies lip swelling, Denies disequilibrium and Denies sore throat Cardiovascular: Cardiovascular: Denies chest pain, Denies syncope, Denies leg edema, Denies lightheadedness, Denies Loss of Consciousness, Denies palpitations and Denies dyspnea Respiratory: Respiratory: Denies no additional respiratory complaints, Denies chest congestion, Denies cough, Denies dyspnea and Denies wheezing Gastrointestinal: Gastrointestinal: Denies abdominal pain, Denies hematochezia, Denies coffee ground emesis, Denies constipation, Denies dysphagia, Denies diarrhea, Denies nausea and Denies vomiting Genitourinary: Genitourinary: Reports no additional male genitourinary complaints and Denies dysuria Musculoskeletal: Musculoskeletal: Reports no additional musculoskeletal complaints, Denies arthralgias, Denies muscle weakness, Denies numbness and Denies tingling Integumentary/Breasts: Skin/Breast: Denies bleeding lesions, Denies new lesions, Denies erythema and Denies rash Neurologic: Denies Abnormal speech present, Denies confusion, Denies vertigo, Denies dizziness, Denies syncope, Reports headache(s), Denies focal weakness, Denies loss of vision, Denies numbness, Denies Sensory deficit (Neuro), Denies tingling, Denies disequilibrium and Denies weakness Psychiatric: Psychiatric: Denies anxiety, Denies confusion and Denies depression Endocrine: Endocrine: Denies cold intolerance, Denies fatigue, Denies heat intolerance and Denies palpitations Hematologic/Lymphatic: Hematologic/Lymphatic: Denies easy bleeding, Denies easy bruising and Denies lymphadenopathy Allergic/Immunologic: Allergic/Immunologic: Denies itchy eyes, Denies lip swelling and Denies wheezing PMFSH Past Medical History Medical History Diabetes Hypercholesteremia Hypertension Family History Pertinent family history: Father with diabetes mellitus. Mother was healthy. For Social History Social History Household Members: Spouse Housing: House Alcohol intake: current Alcohol intake frequency: holidays/special occasions only Patient Tobacco Use Status: Current everyday Tobacco user Tobacco use type: Cigarette Use of substances other than those prescribed or required for medical reasons: No Have you been hit, kicked, punched, or otherwise hurt by someone within the past year? If so, by whom?: No Do you feel safe in your current relationship?: Yes Is there a partner from a previous relationship who is making you feel unsafe now?: No Are you made to feel afraid or neglected: No Advance Directives: No Advance Directives Information Provided: No Do you have thoughts of harming others: None Recently lost weight without trying: No Meds Allergies Allergy/AdvReac Type Severity Reaction Status Date / Time No Known Allergies Allergy Verified 01/07/21 13:58 [No Known Allergies*] Active Medications: Current Medications Generic Name Dose Route Start Last Admin Trade Name Freq PRN Reason Stop Dose Admin Acetaminophen 650 mg 01/07/21 23:06 Acetaminophen 325 Mg Tablet PO Q6H PRN Pain, Mild (Pain Scale 1-3) Amlodipine Besylate 5 mg 01/08/21 09:00 01/08/21 07:37 Amlodipine Besylate 5 Mg Tablet PO 5 mg DAILY MIKIE Administration Protocol Aspirin 325 mg 01/08/21 09:00 01/08/21 07:36 Aspirin 325 Mg Tablet PO 325 mg DAILY MIKIE Administration Dextrose 25 gm 01/07/21 23:11 Dextrose 50 % 25 Gm/50 Ml Vial IVPUSH Q15M PRN per Hypoglycemia Standing Ord. Protocol Glucose 15 gm 01/07/21 23:11 Glucose Gel 15 Gm Gel..Gram. PO Q15M PRN per Hypoglycemia Standing Ord. Protocol Insulin Glargine 10 unit 01/08/21 21:00 Insulin Glargine,Hum.Rec.Anlog 100 Unit/Ml 10 Ml Vial SUBCUT BEDTIME [facility] Insulin Human Lispro 0 unit 01/08/21 07:30 01/08/21 12:54 Insulin Lispro 100 Unit/Ml 3 Ml Vial SUBCUT 8 unit QIDACHS [facility] Administration Protocol Labetalol HCl 10 mg 01/07/21 23:13 01/07/21 23:24 Labetalol Hcl 100 Mg/20 Ml Vial IVPUSH 10 mg Q1H PRN Administration Give for SBP > 160 AND HR > 70 Protocol Metoprolol Tartrate 25 mg 01/08/21 09:00 01/08/21 10:09 Metoprolol Tartrate 25 Mg Tablet PO 25 mg BID MIKIE Administration Protocol Pravastatin Sodium 40 mg 01/08/21 09:00 01/08/21 07:38 Pravastatin Sodium 40 Mg Tablet PO 40 mg DAILY MIKIE Administration Sodium Chloride 3 ml 01/08/21 00:00 01/08/21 10:09 0.9 % Sodium Chloride Flush 3 Ml Syringe IVFLUSH 3 ml QSHIFT [facility] Administration Home Medications Medication Instructions Recorded Confirmed Last Taken Type No Known Home Meds 01/08/21 01/08/21 Unknown History Physical Exam Vital Signs: Vital Signs: Last Vital Signs Temp 97.2 F 01/08/21 11:06 Pulse 72 01/08/21 11:06 Resp 20 01/08/21 11:06 BP 173/100 H 01/08/21 11:06 Pulse Ox 99 01/08/21 11:06 Body Mass Index 36.0 Const: General: no acute distress, well developed, alert and awake; No confusion Nutritional Appearance: overweight Orientation/consciousness: patient oriented x3 and No confusion Limitations: no limitations and No altered mental status HENMT: Head: Yes normal to inspection, Yes normocephalic and Yes atraumatic Ears: hearing grossly normal bilaterally and external ears normal General nose exam: Normal external nose present Face and sinus: Yes normal facial exam and Yes face symmetric Mouth: Normal oral and palatal mucosa present and moist mucous membranes Throat: Yes posterior oropharynx normal and Yes tonsils normal Eyes: General: appearance normal, both eyes and all related structures Alignment and Position: alignment normal and position normal Conjunctivae: conjunctivae normal and conjunctival abnormal diffuse (injection) Sclerae: sclerae normal Pupils: Equal, round and reactive pupils present EOM: EOMs intact bilaterally Direct Ophthalmoscopy: photophobia Neck: Neck: Yes normal visual inspection, Yes full ROM, Yes no lymphadenopathy and Yes supple Lymphatic: no lymphadenopathy noted Chest: Chest palpation & inspection: normal inspection of the chest, no tenderness and No rash Resp: Effort & Inspection: normal respiratory effort and able to speak in complete sentences Auscultation: clear to auscultation bilaterally, no crackles, no rales, no rhonchi and no wheezes Cardio: Rate: regular rate Rhythm: regular rhythm Heart sounds: S1 normal heart sound present, S2 normal heart sound present, no murmurs and no rubs GI: Inspection: Yes normal to inspection and No distended Palpation (GI): Soft to palpation, nontender, no guarding and not rigid Percussion: Yes normal to percussion and No tympanic to percussion Auscultation: normal bowel sounds Skin: General skin exam: no rashes or lesions noted Rashes: no rashes Trauma: no lacerations or abrasions Wounds: no wounds Neuro: Other: Normal neurological examination, including visual almonte. General: patient oriented x3 and No confusion Cranial nerves: Yes CN's II-XII intact bilaterally, Yes Facial sensation intact/muscles of mastication intact, Yes Equal, round and reactive pupils present, Yes Normal accommodation reflex present, Yes Bilaterally intact EOM present, Yes Nystagmus not present, Yes Normal facial strength present, Yes Midline tongue present, Yes Ability to bilaterally rotate head present and Yes Ability to bilaterally elevate shoulders present Cognition (Neuro): normal cognition Speech: No Abnormal speech present Gait exam (Neuro): Normal gait present Motor exam (neuro): 5/5 motor strength present throughout, Pronator motor function not present and no tremor noted Sensory Exam: No Sensory deficit (Neuro) Deep tendon reflexes (DTR's): Right brachioradialis reflex intensity grade: 1+, Left brachioradialis reflex intensity grade: 1+, Right patellar reflex intensity grade: 1+ and Left patellar reflex intensity grade: 1+ Coordination: [id number] test normal, [id number] test normal, tandem gait normal, does not sway with eyes open and Normal rapid alternating movements of the distal lower extremity present (Neuro) Romberg Test: Negative Pupils: Normal pupillary reactivity/response: bilateral Extrem: General: Yes normal to inspection, Yes full ROM and Yes no pedal edema Psych: Appearance: grossly normal Mental Status: mental status grossly normal Speech and movement: Normal speech and movement present Affect: normal affect Attitude: cooperative Thought process: Normal thought process present Results Labs CBC & Chem 7: 01/08/21 06:02 01/08/21 06:02 Labs: Short CBC 01/07/21 01/08/21 Range/Units 14:18 06:02 WBC 11.2 H 11.7 H (4.8-10.8) X10*3/uL Hgb 15.4 14.5 (14.0-18.0) g/dl Hct 44.3 41.4 L (42-52) % Plt Count 210 197 (160-400) X10*3/uL BMP 01/07/21 01/08/21 14:18 06:02 Sodium 137 139 Potassium 4.2 3.4 Chloride 103 105 Carbon Dioxide 27 26 BUN 11 12 Creatinine 1.19 0.86 Calcium 9.5 9.1 Urine 01/07/21 Range/Units 16:27 Urine Color YELLOW Urine Appearance CLEAR Urine pH 6.0 (5.0-8.0) Ur Specific [place] 1.010 (1.005-1.025) Urine Protein NEG (NEG-TRACE) MG/DL Urine Glucose (UA) >=1000 H (NEG) MG/DL Assessment and Plan (1) Cerebrovascular accident: Qualifiers: CVA mechanism: unspecified Qualified Code(s): I63.9 - Cerebral infarction, unspecified Status: Acute Multi-territorial infarcts, With an acute right posterior cerebral distribution infarct involving the splenium of the corpus callosum and the medial occipital lobe on the right. Small subacute infarct in the left frontal paramedian area. In view of the [place] most likely etiology is essential embolic process either from intermittent atrial fibrillation or PFO. Recommendation CTAOr MRA of the neck and the head,Echocardiogram including bubble study. Consider implantable cardiac event monitor for intermittent atrial fibrillation. Start aspirin 81 mg and Plavix 75 mg for now pending a decision to anticoagulate after cardiac workup is complete. Check lipid profile and start a statin (2) Hyperglycemia due to type 2 diabetes mellitus: Status: Acute Control of blood sugar (3) Uncontrolled hypertension: Status: Acute Control of hypertension (4) Medical non-compliance: Status: Acute Acute stroke:: -as seen on MRI of the brain -stroke order set implemented: Neurology checks, Neurology consult, full-dose aspirin, echocardiogram, carotid Dopplers -no permissive hypertension since the patient has been having symptoms for days -treatment of hyperglycemia and hypertension as per below Hyperglycemia due to diabetes mellitus type 2: -patient started on insulin sliding scale with blood sugar checks -hemoglobin A1c ordered -patient has not been taking his medications for the past 3 months due to health insurance issues. -case management consult -patient does not currently remember what his home medications were Uncontrolled hypertension: -patient has not been taking his medications for the past 3 months due to health insurance issues -case management consult as per above -started patient on IV labetalol as needed for systolic blood pressures over 160 -will start patient on amlodipine 5 mg daily (patient does not remember what medications he was taking) Medical noncompliance: -patient was not taking his medications for the past 3 months secondary to the fact that the patient was having difficulty with his health insurance -case management consult placed FEN: Cardiac diet CODE STATUS: FULL CODE DISPO: Admit to Inpatient. Procedures Date of Service Date of Service: 01/08/21
--- NOTE | 2021-01-08 13:41 | MHC.CLN ---
NUTRITION/DIET DIET CHANGED TO DIABETIC 2200 KCAL (24.2 KCAL/KG CMW), CARDIAC. A1c =12.3 AND NOTED THAT PATIENT NOT TAKING MEDICATIONS X 3 MONTHS.
--- NOTE | 2021-01-08 16:50 | P.PNIM_ITS ---
Subjective Subjective Date of Service: 01/09/21 Interval History: Complaining of persistent right-sided headache, left eye decreased vision, denies weakness, no speech impairment. Review of Systems General headache ,no dizziness, no fever chills. CVS no chest pain, no palpitation. Respiratory no cough, no sob. Gastrointestinal no nausea, no vomiting, no abdominal pain Physical Exam Vital Signs: Vital Signs: Last Vital Signs Temp 97.5 F 01/08/21 15:20 Pulse 78 01/08/21 15:20 Resp 20 01/08/21 15:20 BP 154/95 H 01/08/21 15:20 Pulse Ox 98 01/08/21 15:20 Body Mass Index 36.0 General no acute distress. Neck supple, no JVD. CVS regular rate rhythm, Respiratory lungs clear to auscultation, no respiratory distress, no wheeze, no rhonchi. Gastrointestinal abdomen soft, nontender, bowel sounds audible Extremities no edema. Neuro speech clear, no facial droop, no confusion, steady gait, no tremors Skin no rash Objective Data Current Medications Generic Name Dose Route Start Last Admin Trade Name Freq PRN Reason Stop Dose Admin Acetaminophen 650 mg 01/07/21 23:06 Acetaminophen 325 Mg Tablet PO Q6H PRN Pain, Mild (Pain Scale 1-3) Amlodipine Besylate 5 mg 01/08/21 09:00 01/08/21 07:37 Amlodipine Besylate 5 Mg Tablet PO 5 mg DAILY MIKIE Administration Protocol Aspirin 325 mg 01/08/21 09:00 01/08/21 07:36 Aspirin 325 Mg Tablet PO 325 mg DAILY MIKIE Administration Dextrose 25 gm 01/07/21 23:11 Dextrose 50 % 25 Gm/50 Ml Vial IVPUSH Q15M PRN per Hypoglycemia Standing Ord. Protocol Glucose 15 gm 01/07/21 23:11 Glucose Gel 15 Gm Gel..Gram. PO Q15M PRN per Hypoglycemia Standing Ord. Protocol Insulin Glargine 10 unit 01/08/21 21:00 Insulin Glargine,Hum.Rec.Anlog 100 Unit/Ml 10 Ml Vial SUBCUT BEDTIME [facility] Insulin Human Lispro 0 unit 01/08/21 07:30 01/08/21 12:54 Insulin Lispro 100 Unit/Ml 3 Ml Vial SUBCUT 8 unit QIDACHS [facility] Administration Protocol Labetalol HCl 10 mg 01/07/21 23:13 01/07/21 23:24 Labetalol Hcl 100 Mg/20 Ml Vial IVPUSH 10 mg Q1H PRN Administration Give for SBP > 160 AND HR > 70 Protocol Metoprolol Tartrate 25 mg 01/08/21 09:00 01/08/21 10:09 Metoprolol Tartrate 25 Mg Tablet PO 25 mg BID MIKIE Administration Protocol Pravastatin Sodium 40 mg 01/08/21 09:00 01/08/21 07:38 Pravastatin Sodium 40 Mg Tablet PO 40 mg DAILY MIKIE Administration Sodium Chloride 3 ml 01/08/21 00:00 01/08/21 10:09 0.9 % Sodium Chloride Flush 3 Ml Syringe IVFLUSH 3 ml QSHIFT MIKIE Administration Labs CBC & Chem 7: 01/08/21 06:02 01/08/21 06:02 Labs: Laboratory Results - last 24 hr 01/07/21 01/07/21 01/07/21 17:36 18:01 23:24 MCV MCH MCHC RDW Plt Count MPV Immature Gran % (Auto) Neut % (Auto) Lymph % (Auto) [place] % (Auto) Eos % (Auto) Baso % (Auto) Lymph # (Auto) [place] # (Auto) Eos # (Auto) Baso # (Auto) Abs Immat Gran (auto) Absolute Neuts (auto) Absolute Nucleated RBC Nucleated RBC % (auto) Anion Gap Estim Creat Clear Calc Estimated GFR POC Glucose 99 306 H Random Glucose Estimat Average Glucose Hemoglobin A1c % Calcium Troponin I High Sens Triglycerides Cholesterol LDL Cholesterol, Calc HDL Cholesterol COVID-19 ([facility]) Negative COVID-19 Clin Com See Note 01/08/21 01/08/21 01/08/21 01:25 06:02 06:02 MCV MCH MCHC RDW Plt Count MPV Immature Gran % (Auto) Neut % (Auto) Lymph % (Auto) [place] % (Auto) Eos % (Auto) Baso % (Auto) Lymph # (Auto) [place] # (Auto) Eos # (Auto) Baso # (Auto) Abs Immat Gran (auto) Absolute Neuts (auto) Absolute Nucleated RBC Nucleated RBC % (auto) Anion Gap 11 L Estim Creat Clear Calc 145.4 Estimated GFR > 60 POC Glucose 340 H Random Glucose 233 H D Estimat Average Glucose 306 Hemoglobin A1c % 12.3 Calcium 9.1 Troponin I High Sens Triglycerides 111 Cholesterol 159 LDL Cholesterol, Calc 106 HDL Cholesterol 31 COVID-19 ([facility]) COVID-19 [facility] Com 01/08/21 01/08/21 01/08/21 06:02 06:02 07:04 MCV 88.5 MCH 31.0 MCHC 35.0 RDW 11.5 Plt Count 197 MPV 11.3 Immature Gran % (Auto) 0.3 Neut % (Auto) 63.6 Lymph % (Auto) 27.4 [place] % (Auto) 6.5 Eos % (Auto) 1.8 Baso % (Auto) 0.4 Lymph # (Auto) 3.2 [place] # (Auto) 0.8 Eos # (Auto) 0.2 Baso # (Auto) 0.1 Abs Immat Gran (auto) 0.04 H Absolute Neuts (auto) 7.4 Absolute Nucleated RBC 0.000 Nucleated RBC % (auto) 0.0 Anion Gap Estim Creat Clear Calc Estimated GFR POC Glucose 242 H Random Glucose Estimat Average Glucose Hemoglobin A1c % Calcium Troponin I High Sens 4.6 Triglycerides Cholesterol LDL Cholesterol, Calc HDL Cholesterol COVID-19 ([facility]) COVID-19 [facility] Com 01/08/21 01/08/21 08:58 11:27 MCV MCH MCHC RDW Plt Count MPV Immature Gran % (Auto) Neut % (Auto) Lymph % (Auto) [place] % (Auto) Eos % (Auto) Baso % (Auto) Lymph # (Auto) [place] # (Auto) Eos # (Auto) Baso # (Auto) Abs Immat Gran (auto) Absolute Neuts (auto) Absolute Nucleated RBC Nucleated RBC % (auto) Anion Gap Estim Creat Clear Calc Estimated GFR POC Glucose 285 H 324 H Random Glucose Estimat Average Glucose Hemoglobin A1c % Calcium Troponin I High Sens Triglycerides Cholesterol LDL Cholesterol, Calc HDL Cholesterol COVID-19 ([facility]) COVID-19 Clin [employer] Assessment and Plan (1) Medical non-compliance: Status: Acute (2) Uncontrolled hypertension: Status: Acute (3) Hypercholesteremia: Status: Acute (4) Hyperglycemia due to type 2 diabetes mellitus: Status: Acute (5) Cerebrovascular accident: Status: Acute Assessment and Plan: ?Acute CVA Multi-territorial infarction Stable neuro exam , seen by neurology they recommend CTA / MRA of head and neck , and cardiology eval for question underlying atrial fibrillation Continue aspirin, statin , add Plavix LDL 106, blood sugar 300 range, hemoglobin A1c 12.3 will add Lantus Follow echocardiogram, and carotid Dopplers Strongly recommend to abstain from smoking, recommend better blood pressure and blood sugar control Will consult Cardiology with concern for embolic stroke Hyperglycemia due to diabetes mellitus type 2: Patient at home was on metformin not on insulin Continue insulin sliding scale /follow blood sugars, add Lantus , start metformin upon discharge Tobacco use disorder Counseling done Uncontrolled hypertension: Continue Norvasc, add metoprolol follow blood pressure closely will avoid rapid drop of blood pressure Medical noncompliance: not taking his medications for the past 3 months secondary to lack of health insurance case management consult placed CODE STATUS: FULL CODE Quality Stroke Does the patient have a stroke diagnosis?: Yes Reason for No Anti-thrombotic by Day Two: N/A - Med Ordered VTE Prior VTE?: No VTE Risk Level:: Medical - low VTE Device Contraindication: N/A - Device Ordered VTE Drug Contraindication: Treatment Not Indicated
[2021-01-08] MEDS: Clopidogrel Bisulfate 75 MG TABLET PO (18:04)
[2021-01-08 20:01] LABS: Glucose, Whole Blood 228 mg/dL (60-115)
[2021-01-08] MEDS: iohexoL 350 MG/ML 100 ML INFUS..BTL IV (21:40)
[2021-01-08 21:49] LABS: Glucose, Whole Blood 257 mg/dL (60-115)
[2021-01-08] MEDS: Insulin Glargine,Hum.rec.anlog 100 UNIT/ML 10 ML VIAL 10 UNIT SUBCUT (21:51)
[2021-01-08] MEDS: Labetalol HCL 100 MG/20 ML VIAL 10 MG IVPUSH (22:09)
[2021-01-09] VITALS (7 sets, daily range): BP systolic 149–172; BP diastolic 89–96; PULSE 64–75; RESP 16–19; TEMP 36.3–36.8; O2SAT 95–98
[2021-01-09 07:44] LABS: Glucose, Whole Blood 249 mg/dL (60-115)
[2021-01-09] MEDS: Insulin Lispro 100 UNIT/ML 3 ML VIAL SUBCUT ×4 (07:51→21:10)
--- NOTE | 2021-01-09 09:54 | MHC.CM.PN ---
ALTHOUGH REVIEW OF CHART INDICATED THAT PATIENT IS ACTIVE WITH [facility] [employer], PATIENT AND STATE THAT HE IS NOT ACTIVE. FACE SHEET FAXED TO [facility] [employer] @ [phone] TO ASSIST IN THE EVENT THAT PATIENT DOES NOT HAVE INSURANCE. PATIENT LIVES WITH HIS [facility]. HE IS INDEPENDENT WITH ALL ADLS. NO DME OR VNA SERVICES. PCP VERIFIED.
[2021-01-09] MEDS: Metoprolol Tartrate 25 MG TABLET PO ×2 (10:25→21:09)
[2021-01-09] MEDS: amLODIPine Besylate 5 MG TABLET PO (10:25)
[2021-01-09] MEDS: Aspirin 325 MG TABLET PO (10:25)
[2021-01-09] MEDS: Pravastatin Sodium 40 MG TABLET PO (10:25)
[2021-01-09] MEDS: Clopidogrel Bisulfate 75 MG TABLET PO (10:25)
[2021-01-09] MEDS: 0.9 % Sodium Chloride Flush 3 ML SYRINGE IVFLUSH ×3 (10:26→21:10)
[2021-01-09 11:31] LABS: Glucose, Whole Blood 241 mg/dL (60-115)
[2021-01-09] MEDS: lisinopriL 10 MG TABLET PO (11:52)
[2021-01-09 14:34] LABS: Amphetamine Screen Urine Not Detected (Not Detect); Barbiturates, Urine Not Detected (Not Detect); Benzodiazepines Screen Urine Not Detected (Not Detect); Cannabinoid Screen Urine Not Detected (Not Detect); Cocaine Screen Urine Not Detected (Not Detect); Fentanyl, urine Not Detected (Not Detect); Opiate Screen Urine Not Detected (Not Detect); Phencyclidine Screen Urine Not Detected (Not Detect)
--- NOTE | 2021-01-09 14:49 | P.CONCA_ITS ---
History of Present Illness History of Present Illness Date of Service: 01/09/21 Requesting physician: Justin Sibley Chief complaint: Stroke, Hyperglycemia Narrative: I was consulted on Tito from Cardiology perspective due to stroke with multiple territory suggestive of embolic stroke. Patient came with headache and left eye blurriness. Subsequent workup consistent with acute infarct of the splenium of corpus callosum and medial aspect of right occipital lobe as well as there is subacute infarction of the parasagittal anterior left frontal lobe. Carotid ultrasound shows nonobstructive disease. Given multiple different areas of lesion there is concern for embolic source. Patient currently not having any other focal neurologic symptoms. Blood pressure is elevated. Patient has not been taking his blood pressure medications due to insurance issues for about 3 months. Review of Systems Constitutional: Constitutional: Denies chills, Denies fatigue, Denies fever(s), Reports headache(s), Denies weakness and Denies weight loss Eyes: Eyes: Reports blurry vision and Reports change in vision ENT: Denies dysphagia, Denies vertigo, Denies dizziness, Reports headache(s), Denies hearing loss, Denies lip swelling and Denies sore throat Cardiovascular: Cardiovascular: Denies chest pain, Denies leg edema, Denies lightheadedness, Denies palpitations and Denies dyspnea Respiratory: Respiratory: Denies no additional respiratory complaints, Denies cough, Denies dyspnea and Denies wheezing Gastrointestinal: Gastrointestinal: Denies coffee ground emesis, Denies constipation, Denies dysphagia, Denies diarrhea, Denies nausea and Denies vomiting Genitourinary: Genitourinary: Denies dysuria Musculoskeletal: Musculoskeletal: Denies arthralgias, Denies muscle weakness, Denies numbness and Denies tingling Integumentary/Breasts: Skin/Breast: Denies bleeding lesions, Denies new lesions and Denies rash Neurologic: Denies vertigo, Denies dizziness, Reports headache(s), Denies numbness, Denies tingling and Denies weakness Psychiatric: Psychiatric: Denies anxiety and Denies depression Endocrine: Endocrine: Denies cold intolerance, Denies fatigue, Denies heat intolerance and Denies palpitations Hematologic/Lymphatic: Hematologic/Lymphatic: Denies easy bleeding, Denies easy bruising and Denies lymphadenopathy Allergic/Immunologic: Allergic/Immunologic: Denies lip swelling and Denies wheezing PMFSH Past Medical History Medical History Diabetes Hypercholesteremia Hypertension Social History Social History Household Members: Spouse Housing: House Alcohol intake: current Alcohol intake frequency: holidays/special occasions only Patient Tobacco Use Status: Current everyday Tobacco user Tobacco use type: Cigarette Use of substances other than those prescribed or required for medical reasons: No Currently Displaying Signs/Symptoms of Drug Intoxication Withdrawal: No Have you been hit, kicked, punched, or otherwise hurt by someone within the past year? If so, by whom?: No Do you feel safe in your current relationship?: Yes Is there a partner from a previous relationship who is making you feel unsafe now?: No Are you made to feel afraid or neglected: No Advance Directives: No Advance Directives Information Provided: No Do you have thoughts of harming others: None Do you have a plan to hurt others: No Plan Recently lost weight without trying: No service: No Current occupational status: employed Meds Allergies Allergy/AdvReac Type Severity Reaction Status Date / Time No Known Allergies Allergy Verified 01/07/21 13:58 [No Known Allergies*] Active Medications: Current Medications Generic Name Dose Route Start Last Admin Trade Name Freq PRN Reason Stop Dose Admin Acetaminophen 650 mg 01/07/21 23:06 Acetaminophen 325 Mg Tablet PO Q6H PRN Pain, Mild (Pain Scale 1-3) Amlodipine Besylate 5 mg 01/08/21 09:00 01/09/21 10:25 Amlodipine Besylate 5 Mg Tablet PO 5 mg DAILY MIKIE Administration Protocol Aspirin 325 mg 01/08/21 09:00 01/09/21 10:25 Aspirin 325 Mg Tablet PO 325 mg DAILY MIKIE Administration Clopidogrel Bisulfate 75 mg 01/08/21 17:15 01/09/21 10:25 Clopidogrel Bisulfate 75 Mg Tablet PO 75 mg DAILY MIIKE Administration Dextrose 25 gm 01/07/21 23:11 Dextrose 50 % 25 Gm/50 Ml Vial IVPUSH Q15M PRN per Hypoglycemia Standing Ord. Protocol Glucose 15 gm 01/07/21 23:11 Glucose Gel 15 Gm Gel..Gram. PO Q15M PRN per Hypoglycemia Standing Ord. Protocol Insulin Glargine 14 unit 01/09/21 21:00 Insulin Glargine,Hum.Rec.Anlog 100 Unit/Ml 10 Ml Vial SUBCUT BEDTIME [facility] Insulin Human Lispro 0 unit 01/08/21 07:30 01/09/21 11:51 Insulin Lispro 100 Unit/Ml 3 Ml Vial SUBCUT 4 unit QIDACHS [facility] Administration Protocol Labetalol HCl 10 mg 01/07/21 23:13 01/08/21 22:09 Labetalol Hcl 100 Mg/20 Ml Vial IVPUSH 10 mg Q1H PRN Administration Give for SBP > 160 AND HR > 70 Protocol Lisinopril 10 mg 01/09/21 11:25 01/09/21 11:52 Lisinopril 10 Mg Tablet PO 10 mg DAILY [facility] Administration Protocol Metoprolol Tartrate 25 mg 01/08/21 09:00 01/09/21 10:25 Metoprolol Tartrate 25 Mg Tablet PO 25 mg BID [facility] Administration Protocol Pravastatin Sodium 40 mg 01/08/21 09:00 01/09/21 10:25 Pravastatin Sodium 40 Mg Tablet PO 40 mg DAILY [facility] Administration Sodium Chloride 3 ml 01/08/21 00:00 01/09/21 10:26 0.9 % Sodium Chloride Flush 3 Ml Syringe IVFLUSH 3 ml QSHIFT [facility] Administration Home Medications Medication Instructions Recorded Confirmed Last Taken Type No Known Home Meds 01/08/21 01/08/21 Unknown History Physical Exam Vital Signs: Vital Signs: Last Vital Signs Temp 97.5 F 01/09/21 12:00 Pulse 71 01/09/21 12:00 Resp 17 01/09/21 12:00 BP 149/94 H 01/09/21 12:00 Pulse Ox 95 01/09/21 12:00 Body Mass Index 36.0 Const: General: cooperative, comfortable, no acute distress, alert and awake Nutritional Appearance: obese Orientation/consciousness: patient oriented x3 Limitations: no limitations HENMT: Head: Yes normocephalic Neck: Neck: Yes trachea midline, Yes supple and Yes no JVD Resp: Effort & Inspection: normal respiratory effort Auscultation: clear to auscultation bilaterally Cardio: Jugular venous distension: no JVD Palpation: normal PMI Rate: regular rate Rhythm: regular rhythm Heart sounds: S1 normal heart sound present, S2 normal heart sound present, no click, no gallops, no murmurs and no rubs GI: Auscultation: normal bowel sounds Skin: General skin exam: no rashes or lesions noted Neuro: General: patient oriented x3 and no focal motor deficits Extrem: General: Yes no clubbing, cyanosis or edema Results Labs and Meds Result diagrams: 01/08/21 06:02 01/08/21 06:02 Lab results: Laboratory Results - last 24 hr 01/08/21 01/08/21 01/09/21 19:52 21:46 07:33 POC Glucose 228 H 257 H 249 H Urine Opiates Screen Urine Fentanyl Screen Ur Barbiturates Screen Ur Phencyclidine Scrn Ur Amphetamines Screen U Benzodiazepines Scrn Urine Cocaine Screen U Marijuana (THC) Screen 01/09/21 01/09/21 11:22 13:45 POC Glucose 241 H Urine Opiates Screen Not Detected Urine Fentanyl Screen Not Detected Ur Barbiturates Screen Not Detected Ur Phencyclidine Scrn Not Detected Ur Amphetamines Screen Not Detected U Benzodiazepines Scrn Not Detected Urine Cocaine Screen Not Detected U Marijuana (THC) Screen Not Detected Conclusions: - 1. Normal LV systolic function with mild LVH with LVEF of 60 ? 65%? 2. Mildly dilated left atrium? 3. Normal cardiac valvular Doppler ? 4. Normal RV systolic pressure ? 5. No pericardial effusion ? Imaging Radiologist's impression: Impressions Carotid Doppler Study 01/08/21 19:19 IMPRESSION: 1. RIGHT: No hemodynamically significant luminal diameter narrowing. Mild plaque formation resulting in less than 50% luminal diameter narrowing of the ICA. 2. LEFT: No hemodynamically significant luminal diameter narrowing. Mild plaque formation resulting in less than 50% luminal diameter narrowing of the ICA. Head/Neck CTA 01/08/21 21:45 IMPRESSION: 1. Redemonstrated involving infarcts of the right aspect of the splenium of the corpus callosum, medial aspect of the right occipital lobe, and paracentral anterior left frontal lobe. No evidence of acute intracranial hemorrhage. 2. CTA of the head and neck without proximal occlusion or flow-limiting stenosis. Assessment and Plan (1) Cerebrovascular accident: Qualifiers: CVA mechanism: unspecified Qualified Code(s): I63.9 - Cerebral infarction, unspecified Status: Acute Patient presents with CVA with multiple vascular territory. Embolic source is of concern. Echocardiogram, transthoracic, no bubble study was performed. Otherwise no obvious source of emboli noted. I agree with further e valuation for embolic source. Would suggest outpatient NEYDA as well as cardiac event monitor. If no obvious source found may consider implantable loop recorder placement. Importance of compliance with medications both for hypertension diabetes was discussed with help of drywaller. Continue anti platelet/anticoagulant therapy as per Neurology. Blood pressure is not well optimized at current time. Continue to up titrate medications which can be done more as outpatient. Will follow up as outpatient. Procedures Date of Service Date of Service: 01/09/21
--- NOTE | 2021-01-09 16:27 | HO.PM.IMPN ---
Subjective Subjective Date of Service: 01/09/21 Interval History: Persistent left eye visual impairment otherwise feels better, no other acute issues overnight, blood pressure remains elevated. Review of Systems General?no headache ,no dizziness, no fever, chills.? CVS no chest pain, no palpitation.? Respiratory no cough, no sob.? Gastrointestinal no nausea, no vomiting, no abdominal pain Physical Exam Vital Signs: Vital Signs: Last Vital Signs Temp 97.9 F 01/09/21 15:20 Pulse 75 01/09/21 15:20 Resp 16 01/09/21 15:20 BP 164/91 H 01/09/21 15:20 Pulse Ox 96 01/09/21 15:20 Body Mass Index 36.0 General no acute distress.? Neck? supple, no JVD. CVS? regular rate rhythm, Respiratory lungs clear to auscultation, no respiratory distress, no wheeze, no rhonchi. Gastrointestinal abdomen soft, nontender, bowel sounds audible Extremities no? edema. Neuro speech clear, no facial droop, no confusion, steady gait, no tremors Skin no rash Objective Data Current Medications Generic Name Dose Route Start Last Admin Trade Name Freq PRN Reason Stop Dose Admin Acetaminophen 650 mg 01/07/21 23:06 Acetaminophen 325 Mg Tablet PO Q6H PRN Pain, Mild (Pain Scale 1-3) Amlodipine Besylate 5 mg 01/08/21 09:00 01/09/21 10:25 Amlodipine Besylate 5 Mg Tablet PO 5 mg DAILY MIKIE Administration Protocol Aspirin 325 mg 01/08/21 09:00 01/09/21 10:25 Aspirin 325 Mg Tablet PO 325 mg DAILY MIKIE Administration Clopidogrel Bisulfate 75 mg 01/08/21 17:15 01/09/21 10:25 Clopidogrel Bisulfate 75 Mg Tablet PO 75 mg DAILY MIKIE Administration Dextrose 25 gm 01/07/21 23:11 Dextrose 50 % 25 Gm/50 Ml Vial IVPUSH Q15M PRN per Hypoglycemia Standing Ord. Protocol Glucose 15 gm 01/07/21 23:11 Glucose Gel 15 Gm Gel..Gram. PO Q15M PRN per Hypoglycemia Standing Ord. Protocol Insulin Glargine 14 unit 01/09/21 21:00 Insulin Glargine,Hum.Rec.Anlog 100 Unit/Ml 10 Ml Vial SUBCUT BEDTIME [facility] Insulin Human Lispro 0 unit 01/08/21 07:30 01/09/21 11:51 Insulin Lispro 100 Unit/Ml 3 Ml Vial SUBCUT 4 unit QIDACHS [facility] Administration Protocol Labetalol HCl 10 mg 01/07/21 23:13 01/08/21 22:09 Labetalol Hcl 100 Mg/20 Ml Vial IVPUSH 10 mg Q1H PRN Administration Give for SBP > 160 AND HR > 70 Protocol Lisinopril 20 mg 01/10/21 09:00 Lisinopril 20 Mg Tablet PO DAILY [facility] Protocol Metoprolol Tartrate 25 mg 01/08/21 09:00 01/09/21 10:25 Metoprolol Tartrate 25 Mg Tablet PO 25 mg BID MIKIE Administration Protocol Pravastatin Sodium 40 mg 01/08/21 09:00 01/09/21 10:25 Pravastatin Sodium 40 Mg Tablet PO 40 mg DAILY [facility] Administration Sodium Chloride 3 ml 01/08/21 00:00 01/09/21 15:55 0.9 % Sodium Chloride Flush 3 Ml Syringe IVFLUSH 3 ml QSHIFT [facility] Administration Labs CBC & Chem 7: 01/08/21 06:02 01/08/21 06:02 Labs: Laboratory Results - last 24 hr 01/08/21 01/08/21 01/09/21 19:52 21:46 07:33 POC Glucose 228 H 257 H 249 H Urine Opiates Screen Urine Fentanyl Screen Ur Barbiturates Screen Ur Phencyclidine Scrn Ur Amphetamines Screen U Benzodiazepines Scrn Urine Cocaine Screen U Marijuana (THC) Screen 01/09/21 01/09/21 11:22 13:45 POC Glucose 241 H Urine Opiates Screen Not Detected Urine Fentanyl Screen Not Detected Ur Barbiturates Screen Not Detected Ur Phencyclidine Scrn Not Detected Ur Amphetamines Screen Not Detected U Benzodiazepines Scrn Not Detected Urine Cocaine Screen Not Detected U Marijuana (THC) Screen Not Detected Assessment and Plan (1) Medical non-compliance: Status: Acute (2) Uncontrolled hypertension: Status: Acute (3) Hypercholesteremia: Status: Acute (4) Hyperglycemia due to type 2 diabetes mellitus: Status: Acute (5) Cerebrovascular accident: Status: Acute Assessment and Plan: Acute CVA ?Multi-territorial infarction ?Stable neuro exam , CTA head and neck without proximal occlusion of flow limiting stenosis, carotid Doppler showed no significant stenosis, echo showed EF 60-65%, no valvular pathology Physical therapy recommend no skilled PT upon discharge Patient seen by salesforce consultant they recommend outpatient a event recorder and NEYDA ?Continue aspirin, statin , and Plavix ?LDL 106, blood sugar 300 range, hemoglobin A1c 12.3 , U tox negative for cocaine and other illicit drugs ?Strongly recommend to abstain from smoking, recommend better blood pressure and blood sugar control Hyperglycemia due to diabetes mellitus type 2: Patient at home was on metformin not on insulin Continue insulin sliding scale /follow blood sugars, continue Lantus , start metformin upon discharge Tobacco use disorder Counseling done Uncontrolled hypertension: BP remains elevated, Continue Norvasc, and metoprolol will add lisinopril Medical noncompliance: not taking his medications for the past 3 months will arrange for close outpatient PCP follow-up, social sciences professor looking into insurance plan. CODE STATUS: FULL CODE Quality Stroke Does the patient have a stroke diagnosis?: Yes Reason for No Anti-thrombotic by Day Two: N/A - Med Ordered VTE Prior VTE?: No VTE Risk Level:: Medical - low VTE Device Contraindication: N/A - Device Ordered VTE Drug Contraindication: Treatment Not Indicated
[2021-01-09 16:49] LABS: Glucose, Whole Blood 218 mg/dL (60-115)
[2021-01-09 20:41] LABS: Glucose, Whole Blood 270 mg/dL (60-115)
[2021-01-09] MEDS: Insulin Glargine,Hum.rec.anlog 100 UNIT/ML 10 ML VIAL 14 UNIT SUBCUT (21:09)
[2021-01-10] VITALS: BP 160/90; PULSE 64; RESP 16; TEMP 36.5; O2SAT 97
[2021-01-10 03:40] VITALS: BP 159/91; PULSE 67; RESP 16; TEMP 36.8; O2SAT 99
[2021-01-10 07:42] LABS: Glucose, Whole Blood 217 mg/dL (60-115)
[2021-01-10] MEDS: Insulin Lispro 100 UNIT/ML 3 ML VIAL SUBCUT (07:48)
[2021-01-10 08:00] VITALS: BP 146/93; PULSE 69; RESP 17; TEMP 36.4; O2SAT 97
[2021-01-10] MEDS: lisinopriL 20 MG TABLET PO (09:01)
[2021-01-10] MEDS: amLODIPine Besylate 5 MG TABLET PO (09:01)
[2021-01-10] MEDS: Pravastatin Sodium 40 MG TABLET PO (09:01)
[2021-01-10] MEDS: Metoprolol Tartrate 25 MG TABLET PO (09:01)
[2021-01-10] MEDS: Clopidogrel Bisulfate 75 MG TABLET PO (09:01)
[2021-01-10] MEDS: 0.9 % Sodium Chloride Flush 3 ML SYRINGE IVFLUSH (09:02)
--- NOTE | 2021-01-10 09:41 | P.DS_ITS ---
DS: Providers Provider Date of Service: 01/10/21 Date of admission: 01/07/21 23:06 Primary care physician: Kate Kaplan MD Consults: 01/07/21 23:08 Consult to Neurology Routine Consulting Provider: [facility] Reason for consultation: Ischemic stroke, left eye blurry Has provider been notified: No 01/08/21 17:04 Consult to Cardiology Routine Consulting Provider: Brad Maher Reason for consultation: acute cva ? at fib Has provider been notified: No DS: Diagnosis Discharge Diagnosis (1) Medical non-compliance: Status: Acute (2) Uncontrolled hypertension: (3) Hypercholesteremia: (4) Hyperglycemia due to type 2 diabetes mellitus: Status: Acute (5) Cerebrovascular accident: Status: Acute DS: Summary Hospital Course Hospital Course: History of presenting illness Chief Complaint: left eye blurry vision 45-year-old Portuguese-speaking male with history of diabetes mellitus type 2 (non- insulin dependent), hypertension, hyperlipidemia, tobacco use disorder, who ran out of his medication medications about 3 months ago and therefore has not been taking any medications (due to medical insurance issues), who presents with 3 days of headache and left eye blurriness.? History is from patient (using a manager insurance in the ED). Patient tells me that he ran out of his medications 3 months ago, and has not refilled them due to insurance issues.? Three days ago, he started experiencing headache, as well as blurriness in his eyes (left far worse than right).? The patient's boss (from work) actually accompanied the patient to the ED, and tells me that she started noticing the patient was making mistakes that are uncharacteristic for him, and when she found that he was having some blurry vision, insisted he come to the ED.? otherwise, the patient denies weakness, numbness, tingling, chest pain, shortness of breath, fever, chills, nausea, vomiting, abdominal pain or diarrhea. In the ED, pertinent findings include:? Blood pressure as high as 213/132, white blood cell 11.2, glucose level 507, CT of the head showing abnormalities (please see official report for details), MRI of the brain showing acute infarction of the splenium of the corpus callosum and medial aspect of the right occipital lobe, subacute infarction of the parasagittal anterior left frontal lobe, given the very vascular territories and H of these abnormalities, findings are suggestive of central embolic phenomenon (please see official report for full details). The patient is being admitted for acute stroke.? In the ED, he was treated with 10 units of IV insulin, 2 L IV fluid bolus, 10 mg of labetalol IV, and full-dose aspirin. Hospital course Acute CVA ,?Multi-territorial infarction,CTA head and neck without proximal occlusion of flow limiting stenosis, carotid Doppler showed no significant stenosis, echo showed EF 60-65%, no valvular pathology Neuro examination remains stable,?Physical therapy recommend no skilled PT upon discharge,?Patient seen by staff mechanical engineer they recommend outpatient event recorder and NEYDA LDL 106, blood sugar 300 range, hemoglobin A1c 12.3 , U tox negative for cocaine and other illicit drugs, strongly recommend to abstain from smoking, recommend better blood pressure and blood sugar control Recommend to continue aspirin, statin , and Plavix Hyperglycemia due to diabetes mellitus type 2 strongly recommend to follow diabetic diet, continue metformin, glucometer and supplies given. Tobacco use disorder Counseling done Uncontrolled hypertension: Blood pressure medications adjusted, recommend to follow BP closely as outpatient Medical noncompliance:arranged for close outpatient PCP follow-up Time Spent with Patient Time attestation: Total time spent providing and/or coordinating discharge services: Discharge coordination time: Greater than 30 minutes Quality: Stroke Does the patient have a stroke diagnosis?: Yes Reason for No Anti-thrombotic at DC: N/A - Med Ordered Reason for No Anticoagulant at DC: N/A - Med Ordered Reason Not Initiating IV-Tpa: Not indicated Reason for No Anti-thrombotic by Day Two: N/A - Med Ordered Reason for No Statin at DC: N/A - Med Ordered Physical Exam Vital Signs: Vital Signs: Last Vital Signs Temp 97.5 F 01/10/21 08:00 Pulse 69 01/10/21 08:00 Resp 17 01/10/21 08:00 BP 146/93 H 01/10/21 08:00 Pulse Ox 97 01/10/21 08:00 Body Mass Index 36.0 ?General no acute distress.? Neck? s upple, no JVD. CVS ? regular rate rhy thm, Respiratory l ungs clear to ausc ultation, no respi ratory distress, n o wheeze, no rhonc hi. Gastrointestin al abdomen soft, n ontender, bowel so unds audible Extre mities no? edema. Neuro speech clear , no facial droop, no confusion, junaid dominic gait, no tremo rs Skin no rash DS: Data Data Completed and Pending Labs on day of discharge: Laboratory Results - last 24 hr 01/09/21 01/09/21 01/09/21 11:22 13:45 16:36 POC Glucose 241 H 218 H Urine Opiates Screen Not Detected Urine Fentanyl Screen Not Detected Ur Barbiturates Screen Not Detected Ur Phencyclidine Scrn Not Detected Ur Amphetamines Screen Not Detected U Benzodiazepines Scrn Not Detected Urine Cocaine Screen Not Detected U Marijuana (THC) Screen Not Detected 01/09/21 01/10/21 20:31 07:34 POC Glucose 270 H 217 H Urine Opiates Screen Urine Fentanyl Screen Ur Barbiturates Screen Ur Phencyclidine Scrn Ur Amphetamines Screen U Benzodiazepines Scrn Urine Cocaine Screen U Marijuana (THC) Screen Discharge Plan Discharge Patient Disposition: Home, Self-Care Discharge Diagnosis: Acute CVA Uncontrolled blood pressure Diabetes with hyperglycemia Referrals: Kate Carbajal MD [Primary Care Provider] - 1 Week Discharge Medications: New (DME) lancets [FreeStyle Lancets] 28 gauge misc See Rx Instructions .ROUTE .MEDSUPPLY Qty: 100 RF: 0 (DME) blood-glucose meter [FreeStyle Lite Meter] Kit See Rx Instructions .ROUTE .MEDSUPPLY Qty: 1 RF: 0 (DME) FreeStyle Lite Strips Strip See Rx Instructions .ROUTE .MEDSUPPLY Qty: 10 RF: 0 alcohol swabs [Alcohol Wipes] Pads, Medicated 1 pad topical QIDACHS Qty: 200 RF: 0 No Action amlodipine 5 mg tablet 5 mg PO DAILY Qty: 30 RF: 0 aspirin 81 mg tablet,chewable 81 mg PO DAILY Qty: 30 RF: 0 clopidogrel 75 mg tablet 75 mg PO DAILY Qty: 30 RF: 0 Lantus U-100 Insulin 100 unit/mL solution 14 unit subcut BEDTIME Qty: 10 RF: 0 (DME) insulin syringes (disposable) 1 mL syringe See Rx Instructions .ROUTE .MEDSUPPLY Qty: 500 RF: 0 lisinopril 20 mg tablet 20 mg PO DAILY Qty: 30 RF: 0 metformin 500 mg tablet 500 mg PO BID Qty: 60 RF: 0 pravastatin 40 mg tablet 40 mg PO DAILY Qty: 30 RF: 0 Discharge Orders: Discharge Order (Routine); Ordered 01/10/21 Ordered By: Justin Sibley Diet: diabetic diet Activity on Discharge: As tolerated Stand Alone Forms: Patient Portal Discharge page, Work/School Release Care Plan Goals: Acute CVA is started on aspirin, Plavix blood pressure and blood sugar medication take all medications as prescribed follow blood pressure and blood sugar closely Do not drive a car or operate machinery if continued to have vision impairment, follow up with Ophthalmology Health Concerns: Hypertension, diabetes mellitus, take all medications as prescribed Plan of Treatment: Outpatient follow-up with primary care physician and staff mechanical engineer Dr. Maher in 7-10 days Assessment: As above Discharge Date/Time: 01/10/21 11:05
[2021-01-10] MEDS: Aspirin 81 MG TAB.CHEW PO (09:46)
--- NOTE | 2021-01-10 10:11 | MHC.CM.PN ---
PT CLEARED TO [place] HOME TODAY WITH NO SERVICES.
--- NOTE | 2021-01-10 11:06 | PC.NURSE ---
discharged home understands to follow up with meds, PCP and wind tunnel engineer. Verbalizes understanding. Understands glucometer, also informed.
[2021-01-13 22:11] LABS: Beta-Hydroxybutyrate 0.06 mmol/L
== END 2021-01-10 11:05 | disposition home or self-care (01) | DRG 66 ==
LOC: HO.ED 21:39 → HO.EDOVER 23:39 → HO.IMC 01-08 05:06 → HO.EDOVER 01-08 05:37 → HO.S3 01-08 08:02
PROVIDERS: Emergency Medicine; Physician Assistant; Admitting Provider Internal Medicine; Emergency Provider Emergency Medicine; PCP Internal Medicine; Visit Provider Hospitalist
DX: I63.89 Other cerebral infarction (principal); E11.65 Type 2 diabetes mellitus with hyperglycemia; I10 Essential (primary) hypertension; E78.5 Hyperlipidemia, unspecified; Z20.822 Contact with and (suspected) exposure to COVID-19; F17.210 Nicotine dependence, cigarettes, uncomplicated; Z91.120 Patient's intentional underdosing of medication regimen due to financial hardship; Z71.6 Tobacco abuse counseling; Z79.4 Long term (current) use of insulin; Z79.02 Long term (current) use of antithrombotics/antiplatelets; Z79.82 Long term (current) use of aspirin; Z79.899 Other long term (current) drug therapy
CPT/HCPCS: 36415; 70450; 70496; 70498; 70553; 80048; 80061; 80307; 81001; 82010; 82803; 82947; 83036; 84484; 85025; 87635; 93306; 93880; 96361; 96374; 96375; 97162; 97165; 99223; 99285; A9585; J2270; Q9957; Q9967

== ENCOUNTER 2021-03-10 08:26 | Day surgery (SDC) | payer OTHER, SELFPAY ==
[2021-03-05 14:31] VITALS: BMI 35.5
--- NOTE | 2021-03-09 10:20 | P.CONAN_ITS ---
Documented by User: Mona Mooney NP 03/09/21 10:27 HPI - Anesthesia Eval Consult details Narrative: 45yo M for Transesophageal Echocardi[place] [facility] [place] with embolic stroke - no residual - PMFSH Active Problems Active Problems: All Active Problems (Updated 02/23/21 @ 11:57 by Kate Kaplan MD) Severe obesity (BMI 35.0-35.9 with comorbidity) (Acute) Essential hypertension (Acute) Medical non-compliance (Acute) Hyperglycemia due to type 2 diabetes mellitus (Acute) Cerebrovascular accident (Acute) Past Medical History Medical History Diabetes Essential hypertension Hypercholesteremia Hypertension Severe obesity (BMI 35.0-35.9 with comorbidity) Uncontrolled hypertension Family History Family History Mother No problems noted. Father Diabetes Surgical History Surgical History No pertinent past surgical history Social History Social History Household Members: Spouse Housing: House Alcohol intake: current Alcohol intake frequency: holidays/special occasions only Patient Tobacco Use Status: Current everyday Tobacco user Tobacco use type: Cigarette Cigarettes Per Day: 6 e-Cigarette/Vaping Use: Never Used Second Hand Smoke Exposure: No Advance Directives: No Advance Directives Information Provided: Yes service: No Current occupational status: employed Current occupational exposures/hazards: No Meds Allergies Allergy/AdvReac Type Severity Reaction Status Date / Time No Known Allergies Allergy Verified 02/23/21 09:38 [No Known Allergies*] Exam Exam Date and Time: March 09, 2021 1020 Height,Weight and Vital Signs: Height 6 ft Weight 118.841 kg Pertinent Lab Results Pertinent Lab Results: Laboratory Tests 01/08/21 01/08/21 06:02 06:02 WBC 11.7 H Hgb 14.5 Hct 41.4 L Plt Count 197 Sodium 139 Potassium 3.4 Chloride 105 Carbon Dioxide 26 BUN 12 Creatinine 0.86 Narrative Narrative: ECHO 12/2020 Conclusions: - 1. Normal LV systolic function with mild LVH with LVEF of 60 ? 65%? 2. Mildly dilated left atrium? 3. Normal cardiac valvular Doppler ? 4. Normal RV systolic pressure ? 5. No pericardial effusion ? Head/Neck CTA? 01/08/21 21:45 IMPRESSION: 1. Redemonstrated involving infarcts of the right aspect of the splenium of the corpus callosum, medial aspect of the right occipital lobe, and paracentral anterior left frontal lobe. No evidence of acute intracranial hemorrhage. 2. CTA of the head and neck without proximal occlusion or flow-limiting stenosis. Assessment and Plan Assessment Anesthesia Assessment: Chart Reviewed Documented by User: Danyelle Lopez MD 03/10/21 10:07 [facility] Past Medical History Medical History Diabetes Essential hypertension Hypercholesteremia Hypertension Severe obesity (BMI 35.0-35.9 with comorbidity) Uncontrolled hypertension Family History Family History Mother No problems noted. Father Diabetes Surgical History Surgical History No pertinent past surgical history History of Problems with Anesthesia: No Social History Social History Household Members: Spouse Housing: House Alcohol intake: current Alcohol intake frequency: holidays/special occasions only Patient Tobacco Use Status: Current everyday Tobacco user Tobacco use type: Cigarette Cigarettes Per Day: 6 e-Cigarette/Vaping Use: Never Used Second Hand Smoke Exposure: No Advance Directives: No Advance Directives Information Provided: Yes service: No Current occupational status: employed Current occupational exposures/hazards: No Meds Allergies Allergy/AdvReac Type Severity Reaction Status Date / Time No Known Allergies Allergy Verified 02/23/21 09:38 [No Known Allergies*] Exam Airway Mallampati Class: III TM Dist: >3cm Neck ROM: Full Loose/Missing/Broken Teeth: No Heart: RRR Lungs: CTA Assessment and Plan Assessment Anesthesia Assessment: Anesthesia Plan Discussed Final Anesthetic Review History of Problems with Anesthesia: No NPO: Yes ASA Class: III Final Preanesthetic Review: Meds/Allgs Chart Reviewed, Consent Obtained/Reviewed and Anes Risks/Benef Reviewed Patient Risk: Intermediate Procedure Risk: Intermediate Anesthetic Plan Anesthetic Plan: MAC: Disposition: Standard PACU
--- NOTE | 2021-03-10 08:33 | CA_ITS ---
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 1. Normal LV systolic and diastolic function 2. Normal cardiac valvular Doppler with no masses or vegetations 3. No intracardiac masses or thrombi 4. No evidence of PFO 5. No significant atherosclerosis in ascending and arch of the aorta 6. Pericardium is normal Findings Procedure Information Consent was obtained prior to the procedure. Pre NEYDA oral cavity was checked and revealed no overcrowding. The adult 3D probe was passed with no difficulty. Left Ventricle Normal left ventricular size and systolic function. There is mildly increased left ventricular wall thickness. The visually estimated ejection fraction is between 60-65%. Spectral Doppler is indicative of a normal filling pattern. Right Ventricle Normal right ventricular cavity size and systolic function. Atria Both atria are normal in size. There is no evidence of interatrial shunt by color Doppler. There is no evidence of a patent foramen ovale. There is no evidence of thrombus or mass in the left atrium. The saline contrast study was suboptimal as it did not completely fill the fossa ovalis region. However the interatrial septum is completely intact. The left upper, right upper and right lower pulmonary vein drain normally into the left atrium. The left atrial appendage was identified The IVC and SVC drain normally into the right atrium in multiple views with no smoke formation or clots noted. Left atrial appendage ejection velocity was within normal limits. There is no evidence of thrombus or mass in the right atrium. Aortic Valve Normal aortic valve structure and function. There is no evidence of calcification of the aortic valve. There is no evidence of thickening of the aortic valve. There is no aortic valve stenosis. There is no evidence of a mass on the aortic valve. There is no aortic valve regurgitation. Mitral Valve Normal mitral valve structure and function. There is no mitral valve prolapse. There is trace mitral valve regurgitation. There is no mitral valve stenosis. There is no systolic anterior motion of the mitral valve. There is no mitral leaflet elongation . There is no mass noted on the mitral valve. Pulmonic Valve The pulmonic valve is likely normal. Tricuspid Valve Normal tricuspid valve structure. There is no evidence of tricuspid valve prolapse. There is trace tricuspid valve regurgitation. There is no evidence of a mass on the tricuspid valve. Great Vessels All visible segments of the aorta are normal in size. The visualized portions of the pulmonary artery and branches are normal. Venous The inferior vena cava is normal in size and collapses greater than 50% with inspiration. Pericardium/Pleural There is no evidence of pericardial effusion. Updated by Brad Maher on 01:41 PM with Status of Final Brad Maher MD electronically signed on 03/10/2021 1:41:03 PM with status of Final
--- NOTE | 2021-03-10 08:35 | MHC.SHP ---
Pre-Procedural Eval Section A Date of Service: 03/10/21 Section B Chief Complaint: cerebral infarction Details of Present Illness: Multiple embolic CVA Relevant Family History (Specify if Yes): No Relevant Social History: Tobacco Use Present Medications: see Short Stay Collaborative assessment Medical History: Significant History (Hypertension and diabetes) History of Previous Operations: No relevant previous surgery Allergies: Allergies Allergy/AdvReac Type Severity Reaction Status Date / Time No Known Allergies Allergy Verified 02/23/21 09:38 [No Known Allergies*] Review of Systems Sugical H&P ROS: Negative: Constitution, Cardiovascular, Respiratory, Psychiatric, Hem-Onc, Allergic/Immunologic, Gastrointestinal, Genitourinary, Musculoskeletal, Integumentary and Eyes/Ears/Nose/Throat and Yes, Specify: Neurological Exam Surgical H&P Exam: Normal: HEENT, Normal: Heart, Normal: Lungs, Normal: Extremities, Normal: Abdomen, Normal: Skin and Normal: Neurological Plan Diagnosis/Plan: Unchanged I have reviewed the history and physical and performed a pertinent physical examination on my patient. No changes have occurred unless specified.
[2021-03-10 09:48] LABS: Glucose, Whole Blood 199 mg/dL (60-115)
[2021-03-10 09:54] VITALS: BP 152/92; PULSE 85; RESP 18; TEMP 36.9; O2SAT 98; BMI 35.6
[2021-03-10] MEDS: Lactated Ringers 1,000 ML 100 ML IVCONT (10:27)
[2021-03-10 12:20] VITALS: BP 156/98; PULSE 101; RESP 18; TEMP 36.7; O2SAT 99
[2021-03-10 12:35] VITALS: BP 145/86; PULSE 83; RESP 18; O2SAT 99
[2021-03-10 12:50] VITALS: BP 149/88; PULSE 74; RESP 18; TEMP 36.6; O2SAT 98
== END 2021-03-10 14:12 | disposition home or self-care (01) ==
PROVIDERS: PCP Internal Medicine; Visit Provider Internal Medicine Cardiovascular Disease
PROC: (CPT 93312; principal; 2021-03-10 11:00)
DX: I63.9 Cerebral infarction, unspecified (principal); I10 Essential (primary) hypertension; E78.00 Pure hypercholesterolemia, unspecified; E11.9 Type 2 diabetes mellitus without complications; Z79.4 Long term (current) use of insulin; Z79.82 Long term (current) use of aspirin; F17.210 Nicotine dependence, cigarettes, uncomplicated; Z79.899 Other long term (current) drug therapy
CPT/HCPCS: 93312; 82947; J2250

== ENCOUNTER → 2021-03-18 11:15 | Outpatient (REF) | payer OTHER, SELFPAY ==
--- NOTE | 2021-03-18 11:19 | HM_ITS ---
REASON FOR TEST: Cerebral infarction. REQUESTING PROVIDER: Brad Maher MD. INTERPRETATION: The patient was hooked up to cardiac event monitor report from 03/18/2021 to 04/17/2021. Total of 30 days. There were no other strips, only 1 strip on supervisor pipe finishing was noted to be in sinus rhythm at 91 beats per minute. There were no other strips noted. There were no forwarded episodes of atrial fibrillation. CONCLUSION: 1. Event monitor is remarkable, 1 strip showing sinus rhythm. 2. No patient triggered events. 3. No atrial fibrillation noted. Brad Maher MD NRS/MODL / [id number]
== END ==
LOC: HO.CARD 11:15
PROVIDERS: PCP Internal Medicine; Visit Provider Internal Medicine Cardiovascular Disease
DX: I63.9 Cerebral infarction, unspecified (principal)
CPT/HCPCS: 93270

== ENCOUNTER → 2021-05-03 14:07 | Outpatient (BNVA) | payer OTHER, SELFPAY | PROVIDERS: PCP Internal Medicine; Referring Provider Internal Medicine; Visit Provider Internal Medicine Cardiovascular Disease | DX: I63.49 Cerebral infarction due to embolism of other cerebral artery (principal); F17.210 Nicotine dependence, cigarettes, uncomplicated | CPT/HCPCS: 99212 ==

== ENCOUNTER 2021-05-07 10:00 | Outpatient (REF) | payer OTHER, SELFPAY ==
[2021-05-07 10:10] VITALS: BP 155/91; PULSE 81; RESP 16; TEMP 36.4; O2SAT 98; BMI 35.9
[2021-05-07 11:35] VITALS: BP 156/93; PULSE 76; RESP 16; O2SAT 97
--- NOTE | 2021-05-07 12:20 | PM.OP ---
Brief Operative Note Date of Service: 05/07/21 Pre-op diagnosis: Embolic CVA Post-op diagnosis: same Procedure: Implantation of implantable loop recorder Implants: After obtaining consent patient was brought to the minor surgery suite and laid on the operating table in supine position. Patient's precordial area was then shape. This was then prepped and draped in a sterile fashion. Patient was then given 2% lidocaine with epinephrine intradermally and subcutaneously. A [email or web address] LIN[employer] implantable loop recorder was then placed, serial number [id number], using Seldinger technique. The wound was then closed with a Steri-Strip. Pressure dressing was then applied. Patient tolerated the procedure well. Measured R-wave at 0.56 mV Surgeon: Brad Maher MD Anesthesia: local Was an Monitor Tech used for this Procedure?: No Estimated blood loss (mL): 3 Pathology: none sent Condition: stable Disposition: same day
== END 2021-05-07 10:01 | disposition home or self-care (01) ==
LOC: HO.MS 10:00
PROVIDERS: PCP Internal Medicine; Visit Provider Internal Medicine Cardiovascular Disease
PROC: (CPT 33285; principal; 2021-05-07 11:00)
DX: I63.9 Cerebral infarction, unspecified (principal); I10 Essential (primary) hypertension; Z87.891 Personal history of nicotine dependence
CPT/HCPCS: 33285; C1764

== ENCOUNTER → 2021-05-19 13:49 | Outpatient (BNVA) | payer OTHER, SELFPAY | PROVIDERS: PCP Internal Medicine; Referring Provider Internal Medicine; Visit Provider Nurse Practitioner Family | DX: Z45.09 Encounter for adjustment and management of other cardiac device (principal); I63.49 Cerebral infarction due to embolism of other cerebral artery; I10 Essential (primary) hypertension | CPT/HCPCS: 93288; 99212 ==

== ENCOUNTER → 2022-12-23 23:59 | Outpatient (BNV) | payer SELFPAY ==
--- NOTE | 2022-12-26 12:55 | MHC.OFFVIS ---
Intake Intake Visit Reasons: Remote ILR Check- [employer] Allergies No Known Allergies [No Known Allergies*] Allergy (Unverified 12/09/22 13:25) atorvastatin Adverse Reaction (Unknown, Verified 12/09/22 13:25) elevated liver enzymes glipizide Adverse Reaction (Unknown, Verified 12/09/22 13:25) hypoglycemia chantix Allergy (Unknown, Uncoded 12/09/22 13:25) sweating PFSH Medical History (Updated 12/09/22 @ 13:25 by Rosalva Elizabeth) Diabetes Essential hypertension Hypercholesteremia Hypertension Severe obesity (BMI 35.0-35.9 with comorbidity) Uncontrolled hypertension Surgical History (Updated 12/09/22 @ 13:25 by Rosalva Elizabeth) No pertinent past surgical history Family History (System 12/09/22 @ 13:25 by Rosalva Elizabeth) Mother No problems noted. Father Diabetes Social History (System 12/09/22 @ 13:25 by Rosalva Elizabeth) Household Members: Spouse Housing: House Alcohol intake: current Alcohol intake frequency: does not drink Patient Tobacco Use Status: Current everyday Tobacco user Tobacco use type: Cigarette Cigarettes Per Day: 6 e-Cigarette/Vaping Use: Never Used Second Hand Smoke Exposure: No service: No Current occupational status: employed Current occupational exposures/hazards: No Office Procedures Cardiac Device Check Cardiac Device Check Details: Remote implantable loop recorder report generated 12/25/2022, total 6 months of recording. One episode of atrial fibrillation reported. However or presented strip also is very regular suggestive atrial fibrillation. Will follow-up with EKG. Patient has been started on Xarelto therapy [id number] Cardiac Interrogation, subcut cardiac rhythm monitor Procedure code (CPT) selection complete Coding Level of Care Code Procedure Only Diagnoses CPT Codes Cardiac Device Check - Cardiac Device 16: [id number] Cardiac Interrogation, subcut cardiac rhythm monitor ([id number])
== END ==
PROVIDERS: PCP Internal Medicine; Visit Provider Internal Medicine Cardiovascular Disease
DX: I48.91 Unspecified atrial fibrillation (principal)
CPT/HCPCS: 93298

== ENCOUNTER → 2023-01-27 23:59 | Outpatient (BNV) | payer SELFPAY ==
--- NOTE | 2023-01-27 14:53 | MHC.OFFVIS ---
Intake Intake Visit Reasons: Remote ILR Check- [employer] Allergies No Known Allergies [No Known Allergies*] Allergy (Unverified 12/09/22 13:25) atorvastatin Adverse Reaction (Unknown, Verified 12/09/22 13:25) elevated liver enzymes glipizide Adverse Reaction (Unknown, Verified 12/09/22 13:25) hypoglycemia chantix Allergy (Unknown, Uncoded 12/09/22 13:25) sweating PFSH Medical History (Updated 12/09/22 @ 13:25 by Rosalva Elizabeth) Severe obesity (BMI 35.0-35.9 with comorbidity) Essential hypertension Uncontrolled hypertension Hypercholesteremia Hypertension Diabetes Surgical History (Updated 12/09/22 @ 13:25 by Rosalva Elizabeth) No pertinent past surgical history Family History (System 12/09/22 @ 13:25 by Rosalva Elizabeth) Mother No problems noted. Father Diabetes Social History (System 12/09/22 @ 13:25 by Rosalva Elizabeth) Household Members: Spouse Housing: House Alcohol intake: current Alcohol intake frequency: does not drink Patient Tobacco Use Status: Current everyday Tobacco user Tobacco use type: Cigarette Cigarettes Per Day: 6 e-Cigarette/Vaping Use: Never Used Second Hand Smoke Exposure: No service: No Current occupational status: employed Current occupational exposures/hazards: No Office Procedures Cardiac Device Check Cardiac Device Check Details: Remote implantable loop recorder report generated 01/27/2023. No pauses or arrhythmias detected [id number] Cardiac Interrogation, subcut cardiac rhythm monitor Procedure code (CPT) selection complete Coding Level of Care Code Procedure Only CPT Codes Cardiac Device Check - Cardiac Device 16: [id number] Cardiac Interrogation, subcut cardiac rhythm monitor ([id number])
== END ==
PROVIDERS: PCP Internal Medicine; Visit Provider Internal Medicine Cardiovascular Disease
DX: I63.9 Cerebral infarction, unspecified (principal); Z95.818 Presence of other cardiac implants and grafts
CPT/HCPCS: 93298

== ENCOUNTER 2023-03-01 09:18 | Emergency (ER) | payer OTHER, SELFPAY ==
[2023-03-01 09:31] VITALS: BP 170/97; PULSE 88; RESP 19; TEMP 36.6; O2SAT 98; BMI 33.2
--- NOTE | 2023-03-01 09:53 | ED_ITS ---
HPI - Extremity Problem General Chief complaint: Extremity Injury, Lower Stated complaint: R Lower Leg Cellulitis Time Seen by Provider: 03/01/23 09:40 Source: patient and polisher eyeglass frames Mode of arrival: ambulatory Limitations: no limitations History of Present Illness HPI Narrative: 47 yo Upper Sorbian speaking male with history of DM, HTN, obesity, hx CVA who presents to the ER for evaluation of right lateral ankle pain, swelling and redness that started 3 days ago and has been getting worse. He denies any trauma or injury. No known insect or tick bites. He states the area has been getting more red and swollen. He can walk on it and range the ankle normally. No history of gout. No fever or chills at home. MD Complaint: extremity pain and extremity swelling Onset (ago): day(s) (3) Pain Consistency: constant Location: right and lower extremity Quality: aching Radiation: distal Relieving factors: nothing Exacerbating factors: palpation Associated symptoms: denies other symptoms Related Data Previous Rx's Medication Instructions Recorded blood-glucose meter (FreeStyle #1 ea 02/23/21 Lite Meter kit) insulin syringes (disposable) 1 mL #500 ea 04/13/21 alcohol swabs (Alcohol Wipes) 1 pad topical QIDACHS #200 ea 05/19/21 amlodipine 10 mg tablet 10 mg PO DAILY #90 tabs 05/19/21 blood sugar diagnostic (FreeStyle #100 ea 05/19/21 Lite Strips) lancets 28 gauge (FreeStyle #100 ea 05/19/21 Lancets) insulin glargine 100 unit/mL 14 unit (0.14 mL) subcut BEDTIME 02/25/22 subcutaneous solution (Lantus #10 mL U-100 Insulin) lisinopril 20 mg tablet 20 mg PO DAILY 90 days #90 tabs 02/25/22 metformin 500 mg tablet 500 mg PO BID 90 days #180 tabs 02/25/22 pravastatin 40 mg tablet 40 mg PO DAILY 90 days #90 tabs 02/25/22 rivaroxaban 20 mg tablet (Xarelto) 20 mg PO DAILY 30 days #30 tabs 11/30/22 cephalexin 500 mg capsule 500 mg PO Q6H 7 days #28 caps 03/01/23 doxycycline hyclate 100 mg tablet 100 mg PO BID #14 tabs 03/01/23 Allergies Allergy/AdvReac Type Severity Reaction Status Date / Time No Known Allergies Allergy Unverified 12/09/22 13:25 [No Known Allergies*] atorvastatin AdvReac Unknown elevated Verified 03/01/23 09:30 liver enzymes glipizide AdvReac Unknown hypoglycemi Verified 03/01/23 09:30 a chantix Allergy Unknown sweating Uncoded 03/01/23 09:30 Review of Systems 2 Review of Systems: Yes all other systems are reviewed and are negative [facility] Past Medical History Medical History (Updated 03/01/23 @ 09:54 by BRAYDON Sanches) Severe obesity (BMI 35.0-35.9 with comorbidity) Essential hypertension Uncontrolled hypertension Hypercholesteremia Hypertension Diabetes Surgical History (Updated 12/09/22 @ 13:25 by Rosalva Elizabeth) No pertinent past surgical history Family History Family History (System 12/09/22 @ 13:25 by Rosalva Elizabeth) Mother No problems noted. Father Diabetes Social History Social History (System 12/09/22 @ 13:25 by Rosalva Elizabeth) Household Members: Spouse Housing: House Alcohol intake: current Alcohol intake frequency: does not drink Patient Tobacco Use Status: Current everyday Tobacco user Tobacco use type: Cigarette Cigarettes Per Day: 6 e-Cigarette/Vaping Use: Never Used Second Hand Smoke Exposure: No Advance Directives: No Advance Directives Information Provided: Yes service: No Current occupational status: employed Current occupational exposures/hazards: No Physical Exam 2 Vital Signs: Vital Signs: Last Vital Signs Temp 98 F 03/01/23 09:31 Pulse 88 03/01/23 09:31 Resp 19 03/01/23 09:31 BP 170/97 H 03/01/23 09:31 Pulse Ox 98 03/01/23 09:31 O2 Del Method Room Air 03/01/23 09:31 BMI result Body Mass Index 33.2 Appearance: Alert. Oriented X3. No acute distress. HEENT: normal inspection CVS: Normal heart rate and rhythm. Pulses normal. Respiratory: No respiratory distress. Skin: Skin warm and dry. Normal skin color. Normal skin turgor. No rashes. Extremities: right lateral ankle with moderate generalized swelling extending to the base of the foot with a 3cm area of erythema and warmth, no induration or fluctuance. mild tenderness throughout. foot is warm and well perfused. no calf tenderness or skin changes. Neuro: Oriented X 3. No motor deficit. No sensory deficit. Medical Decision Making Medical Decision Making [facility] Narrative: 47 yo male presenting with nontraumtic right ankle/foot redness, pain and swelling x3 days. Exam is c/w cellulitis. Denies insect bites but has a rounded area of erythema, no typical for ECM rash but will check Lyme panel. labs w/ WBC 11.2, normal ESR which is reassuring. VSS, no fevers. No evidence of DVT on exam. Will start doxy/keflex for cellulitis. diagnosis, treatment and return precautions discussed. stable for d/c home with outpatient follow up and close monitoring Differential Diagnosis Differential Diagnoses: The differential diagnosis associated with the presentation includes cellulitis, tick borne illness, gout, septic joint, less likey DVT Admission/Observation Consideration of admission/observation: Escalation of care including admission/observation considered diabetic w/ cellulitis, considered admission/obs Lab Data [facility] Lab Attestation statement: I reviewed the patient's lab results. mild leukocytosis 03/01/23 10:24 03/01/23 10:24 Labs: Lab Results 03/01/23 Range/Units 10:24 WBC 11.2 H (4.8-10.8) X10*3/uL RBC 4.79 (4.60-5.80) X10*6/uL Hgb 14.8 (14.0-18.0) g/dl Hct 41.7 L (42.0-52.0) % MCV 87.1 (80.0-98.0) fL MCH 30.9 (27.0-33.0) pg MCHC 35.5 (31.0-36.0) g/dl RDW 11.3 (11.0-16.0) % Plt Count 201 (160-400) X10*3/uL MPV 10.3 (9.4-12.4) fL Immature Gran % (Auto) 0.3 (0.0-0.4) % Neut % (Auto) 74.1 H (45-73) % Lymph % (Auto) 16.1 L (20-40) % [place] % (Auto) 7.7 (2-11) % Eos % (Auto) 1.4 (0-4) % Baso % (Auto) 0.4 (0-2) % Lymph # (Auto) 1.8 (1.2-4.9) X10*3/uL [place] # (Auto) 0.9 (0.1-1.2) X10*3/uL Eos # (Auto) 0.2 (0.0-0.4) X10*3/uL Baso # (Auto) 0.1 (0.0-0.2) X10*3/uL Abs Immat Gran (auto) 0.03 (0.00-0.03) X10*3/uL Absolute Neuts (auto) 8.3 (2.0-8.3) x10*3/uL Absolute Nucleated RBC 0.000 (0.0-0.012) X10*3/uL Nucleated RBC % (auto) 0.0 (0.0-0.2) /100WBC ESR 12 (0-15) MM/HR Sodium 140 (135-145) mmol/L Potassium 4.0 (3.3-5.1) mmol/L Chloride 105 (96-108) mmol/L Carbon Dioxide 26 (22-29) mmol/L Anion Gap 13 (12-20) BUN 12 (9-16) mg/dL Creatinine 0.86 (0.5-1.4) mg/dL Estim Creat Clear Calc 136.6 Estimated GFR > 60 Random Glucose 280 H (60-115) mg/dL Calcium 9.4 (8.4-10.2) mg/dL Total Bilirubin 0.4 (0.0-1.0) mg/dL Direct Bilirubin 0.1 (0.0-0.5) mg/dL AST 10 (5-37) U/L ALT 12 (0-40) U/L Alkaline Phosphatase 108 (39-117) U/L C-Reactive Protein 1.95 H (< or = 0.50) mg/dL Total Protein 6.8 (6.5-8.0) g/dL Albumin 4.0 (3.5-5.0) g/dL External Record Review External record reviewed: Prior outpatient labs Prescription Management I considered prescription management with: Antibiotic Chronic Conditions Patient?s care impacted by: Diabetes Critical Care Time Critical Care Time Critical Care Time: No Discharge Plan Discharge Clinical Impression: Cellulitis Qualifiers: Site of cellulitis: extremity Site of cellulitis of extremity: lower extremity Laterality: right Qualified Code(s): L03.115 - Cellulitis of right lower limb Patient Disposition: Home, Self-Care Instructions: Cellulitis (DC), Warm Compress or Soak (ED) Additional Instructions: Take the prescribed antibiotics as directed, complete the entire course and do not miss any doses Use warm compresses to the area 2-3 times per day Elevate your foot when able to help with swelling Follow up with your doctor to ensure complete resolution If your Lyme test comes back positive we will contact you If you develop new or worsening symptoms call 911 or come back to the ER for further evaluation. [place] los antibi?ticos recetados seg?n las indicaciones, complete todo el tratamiento y no omita ninguna dosis. Use compresas tibias en el ?keshawn 2-3 veces al d?a. Eleve el pie cuando pueda ayudar con la hinchaz?n. Manda un seguimiento con wyatt m?dico para garantizar jeremie resoluci?n completa. Si wyatt prueba de Lyme resulta positiva nos comunicaremos con usted Si desarrolla s?ntomas nuevos o que empeoran, llame al 911 o regrese a la teresa de emergencias para jeremie evaluaci?n adicional. Prescriptions: New cephalexin 500 mg capsule 500 mg PO Q6H 7 Days Qty: 28 0RF doxycycline hyclate 100 mg tablet 100 mg PO BID Qty: 14 0RF No Action (DME) insulin syringes (disposable) 1 mL syringe See Rx Instructions .ROUTE .MEDSUPPLY Qty: 500 3RF Rx Instructions: As directed alcohol swabs [Alcohol Wipes] Pads, Medicated 1 pad topical QIDACHS Qty: 200 0RF (DME) lancets [FreeStyle Lancets] 28 gauge misc See Rx Instructions .ROUTE .MEDSUPPLY Qty: 100 11RF Rx Instructions: Use 1 lancet three times a day (DME) FreeStyle Lite Strips Strip See Rx Instructions .ROUTE .MEDSUPPLY Qty: 100 11RF Rx Instructions: Use 1 test strip three times a day insulin glargine [Lantus U-100 Insulin] 100 unit/mL solution 14 unit subcut BEDTIME Qty: 10 0RF lisinopril 20 mg tablet 20 mg PO DAILY 90 Days Qty: 90 1RF Protocol: Hold for SBP< HOLD for SBP < : 90 pravastatin 40 mg tablet 40 mg PO DAILY 90 Days Qty: 90 1RF metformin 500 mg tablet 500 mg PO BID 90 Days Qty: 180 1RF Xarelto 20 mg tablet 20 mg PO DAILY 30 Days Qty: 30 4RF Rx Instructions: must administer with evening meal (DME) blood-glucose meter [FreeStyle Lite Meter] Kit See Rx Instructions .ROUTE .MEDSUPPLY Qty: 1 0RF Rx Instructions: As directed amlodipine 10 mg tablet 10 mg PO DAILY Qty: 90 1RF Referrals: Lester Cheek MD [Primary Care Provider] - Stand Alone Forms: Work/School Release Interventions: ED Discharge Assessment Last Done: 03/01/23 11:02 Discharge Date/Time: 03/01/23 11:03 Print Language: Upper Sorbian
[2023-03-02 21:53] LABS: Lyme Abs Screen <0.90 index
== END 2023-03-01 11:03 | disposition home or self-care (01) ==
PROVIDERS: Physician Assistant; Emergency Provider Emergency Medicine Emergency Medical Services; PCP Student in an Organized Health Care Education/Training Program
DX: L03.115 Cellulitis of right lower limb (principal); M79.661 Pain in right lower leg; E11.9 Type 2 diabetes mellitus without complications; I10 Essential (primary) hypertension; E78.00 Pure hypercholesterolemia, unspecified; F17.210 Nicotine dependence, cigarettes, uncomplicated; Z86.73 Personal history of transient ischemic attack (TIA), and cerebral infarction without residual deficits; Z79.4 Long term (current) use of insulin; Z79.899 Other long term (current) drug therapy
CPT/HCPCS: 36415; 80048; 80076; 85025; 85652; 86140; 86617; 86618; 99282; 99283

== ENCOUNTER → 2023-03-03 23:59 | Outpatient (BNV) | payer SELFPAY ==
--- NOTE | 2023-03-13 08:42 | MHC.OFFVIS ---
Intake Intake Visit Reasons: Remote ILR Check- [employer] Allergies No Known Allergies [No Known Allergies*] Allergy (Unverified 12/09/22 13:25) atorvastatin Adverse Reaction (Unknown, Verified 03/01/23 09:30) elevated liver enzymes glipizide Adverse Reaction (Unknown, Verified 03/01/23 09:30) hypoglycemia chantix Allergy (Unknown, Uncoded 03/01/23 09:30) sweating PFSH Medical History (Updated 03/02/23 @ 00:00 by Fredrick Leavitt) Severe obesity (BMI 35.0-35.9 with comorbidity) Essential hypertension Uncontrolled hypertension Hypercholesteremia Hypertension Diabetes Surgical History (Updated 12/09/22 @ 13:25 by Rosalva Elizabeth) No pertinent past surgical history Family History (System 12/09/22 @ 13:25 by Rosalva Elizabeth) Mother No problems noted. Father Diabetes Social History (System 12/09/22 @ 13:25 by Rosalva Elizabeth) Household Members: Spouse Housing: House Alcohol intake: current Alcohol intake frequency: does not drink Patient Tobacco Use Status: Current everyday Tobacco user Tobacco use type: Cigarette Cigarettes Per Day: 6 e-Cigarette/Vaping Use: Never Used Second Hand Smoke Exposure: No Advance Directives: No Advance Directives Information Provided: Yes service: No Current occupational status: employed Current occupational exposures/hazards: No Office Procedures Cardiac Device Check Cardiac Device Check Details: Remote implantable loop recorder report generated 03/03/2020. No episodes of atrial fibrillation the last month [id number]-Uxofeq Cardiac Interrogation, subcut cardiac rhythm monitor Procedure code (CPT) selection complete Coding Level of Care Code Procedure Only CPT Codes Cardiac Device Check - Cardiac Device 16: [id number]-Pmotxi Cardiac Interrogation, subcut cardiac rhythm monitor ([id number])
== END ==
PROVIDERS: PCP Student in an Organized Health Care Education/Training Program; Visit Provider Internal Medicine Cardiovascular Disease
DX: I63.9 Cerebral infarction, unspecified (principal)
CPT/HCPCS: 93298

== ENCOUNTER → 2023-04-07 23:59 | Outpatient (BNV) | payer SELFPAY ==
--- NOTE | 2023-04-07 14:19 | MHC.OFFVIS ---
Intake Intake Visit Reasons: Remote ILR Check- [employer] Allergies No Known Allergies [No Known Allergies*] Allergy (Unverified 12/09/22 13:25) atorvastatin Adverse Reaction (Unknown, Verified 03/01/23 09:30) elevated liver enzymes glipizide Adverse Reaction (Unknown, Verified 03/01/23 09:30) hypoglycemia chantix Allergy (Unknown, Uncoded 03/01/23 09:30) sweating PFSH Medical History (Updated 03/02/23 @ 00:00 by Fredrick Leavitt) Severe obesity (BMI 35.0-35.9 with comorbidity) Essential hypertension Uncontrolled hypertension Hypercholesteremia Hypertension Diabetes Surgical History (Updated 12/09/22 @ 13:25 by Rosalva Elizabeth) No pertinent past surgical history Family History (System 12/09/22 @ 13:25 by Rosalva Elizabeth) Mother No problems noted. Father Diabetes Social History (System 12/09/22 @ 13:25 by Rosalva Elizabeth) Household Members: Spouse Housing: House Alcohol intake: current Alcohol intake frequency: does not drink Patient Tobacco Use Status: Current everyday Tobacco user Tobacco use type: Cigarette Cigarettes Per Day: 6 e-Cigarette/Vaping Use: Never Used Second Hand Smoke Exposure: No Advance Directives: No Advance Directives Information Provided: Yes service: No Current occupational status: employed Current occupational exposures/hazards: No Office Procedures Cardiac Device Check Cardiac Device Check Details: Remote implantable loop recorder report generated 04/07/2023. No arrhythmias detected [id number]-Altibl Cardiac Interrogation, subcut cardiac rhythm monitor Procedure code (CPT) selection complete Coding Level of Care Code Procedure Only CPT Codes Cardiac Device Check - Cardiac Device 16: 34918-Knusiy Cardiac Interrogation, subcut cardiac rhythm monitor ([id number])
== END ==
PROVIDERS: PCP Internal Medicine; Visit Provider Internal Medicine Cardiovascular Disease
DX: I63.9 Cerebral infarction, unspecified (principal)
CPT/HCPCS: 93298

== ENCOUNTER → 2023-05-12 23:59 | Outpatient (BNV) | payer SELFPAY ==
--- NOTE | 2023-05-23 08:39 | MHC.OFFVIS ---
Intake Intake Visit Reasons: Remote ILR Check- [employer] Allergies No Known Allergies [No Known Allergies*] Allergy (Unverified 12/09/22 13:25) atorvastatin Adverse Reaction (Unknown, Verified 03/01/23 09:30) elevated liver enzymes glipizide Adverse Reaction (Unknown, Verified 03/01/23 09:30) hypoglycemia chantix Allergy (Unknown, Uncoded 03/01/23 09:30) sweating PFSH Medical History (Updated 03/02/23 @ 00:00 by Fredrick Leavitt) Severe obesity (BMI 35.0-35.9 with comorbidity) Essential hypertension Uncontrolled hypertension Hypercholesteremia Hypertension Diabetes Surgical History (Updated 12/09/22 @ 13:25 by Rosalva Elizabeth) No pertinent past surgical history Family History (System 12/09/22 @ 13:25 by Rosalva Elizabeth) Mother No problems noted. Father Diabetes Social History (System 12/09/22 @ 13:25 by Rosalva Elizabeth) Household Members: Spouse Housing: House Alcohol intake: current Alcohol intake frequency: does not drink Patient Tobacco Use Status: Current everyday Tobacco user Tobacco use type: Cigarette Cigarettes Per Day: 6 e-Cigarette/Vaping Use: Never Used Second Hand Smoke Exposure: No Advance Directives: No Advance Directives Information Provided: Yes service: No Current occupational status: employed Current occupational exposures/hazards: No Office Procedures Cardiac Device Check Cardiac Device Check Details: Remote implantable loop recorder report generated 05/12/2023. No pauses or arrhythmias noted [id number]-Aomjkh Cardiac Interrogation, subcut cardiac rhythm monitor Procedure code (CPT) selection complete Assessment & Plan Assessment & Plan (1) Cardiac device in situ: Comment: ILR 04/2021, left chest Code(s): Z95.9 - Presence of cardiac and vascular implant and graft, unspecified Plan: See above Coding Level of Care Code Procedure Only Diagnoses Cardiac device in situ Z95.9 CPT Codes Cardiac Device Check - Cardiac Device 16: 72067-Uubnau Cardiac Interrogation, subcut cardiac rhythm monitor ([id number])
== END ==
PROVIDERS: PCP Internal Medicine; Visit Provider Internal Medicine Cardiovascular Disease
DX: I63.9 Cerebral infarction, unspecified (principal); Z95.818 Presence of other cardiac implants and grafts
CPT/HCPCS: 93298

== ENCOUNTER → 2023-06-16 23:59 | Outpatient (BNV) | payer SELFPAY ==
--- NOTE | 2023-06-19 17:53 | MHC.OFFVIS ---
Intake Intake Visit Reasons: Remote ILR Check- [employer] Allergies No Known Allergies [No Known Allergies*] Allergy (Unverified 12/09/22 13:25) atorvastatin Adverse Reaction (Unknown, Verified 03/01/23 09:30) elevated liver enzymes glipizide Adverse Reaction (Unknown, Verified 03/01/23 09:30) hypoglycemia chantix Allergy (Unknown, Uncoded 03/01/23 09:30) sweating PFSH Medical History (Updated 03/02/23 @ 00:00 by Fredrick Leavitt) Severe obesity (BMI 35.0-35.9 with comorbidity) Essential hypertension Uncontrolled hypertension Hypercholesteremia Hypertension Diabetes Surgical History (Updated 12/09/22 @ 13:25 by Rosalva Elizabeth) No pertinent past surgical history Family History (System 12/09/22 @ 13:25 by Rosalva Elizabeth) Mother No problems noted. Father Diabetes Social History (System 12/09/22 @ 13:25 by Rosalva Elizabeth) Household Members: Spouse Housing: House Alcohol intake: current Alcohol intake frequency: does not drink Patient Tobacco Use Status: Current everyday Tobacco user Tobacco use type: Cigarette Cigarettes Per Day: 6 e-Cigarette/Vaping Use: Never Used Second Hand Smoke Exposure: No Advance Directives: No Advance Directives Information Provided: Yes service: No Current occupational status: employed Current occupational exposures/hazards: No Office Procedures Cardiac Device Check Cardiac Device Check Details: Remote implantable loop recorder report generated 06/16/2023. No arrhythmias or pauses noted [id number]-Zkvmmd Cardiac Interrogation, subcut cardiac rhythm monitor Procedure code (CPT) selection complete Assessment & Plan Assessment & Plan (1) Cardiac device in situ: Comment: ILR 04/2021, left chest Code(s): Z95.9 - Presence of cardiac and vascular implant and graft, unspecified Plan: See above Coding Level of Care Code Procedure Only Diagnoses Cardiac device in situ Z95.9 CPT Codes Cardiac Device Check - Cardiac Device 16: [id number]-Ijgiws Cardiac Interrogation, subcut cardiac rhythm monitor ([id number])
== END ==
PROVIDERS: PCP Internal Medicine; Visit Provider Internal Medicine Cardiovascular Disease
DX: I63.9 Cerebral infarction, unspecified (principal); Z95.9 Presence of cardiac and vascular implant and graft, unspecified
CPT/HCPCS: 93298

== ENCOUNTER → 2023-07-21 23:59 | Outpatient (BNV) | payer SELFPAY ==
--- NOTE | 2023-07-24 08:30 | MHC.OFFVIS ---
Intake Intake Visit Reasons: Remote ILR Check- [employer] Allergies No Known Allergies [No Known Allergies*] Allergy (Unverified 12/09/22 13:25) atorvastatin Adverse Reaction (Unknown, Verified 03/01/23 09:30) elevated liver enzymes glipizide Adverse Reaction (Unknown, Verified 03/01/23 09:30) hypoglycemia chantix Allergy (Unknown, Uncoded 03/01/23 09:30) sweating PFSH Medical History (Updated 03/02/23 @ 00:00 by Fredrick Leavitt) Severe obesity (BMI 35.0-35.9 with comorbidity) Essential hypertension Uncontrolled hypertension Hypercholesteremia Hypertension Diabetes Surgical History (Updated 12/09/22 @ 13:25 by Rosalva Elizabeth) No pertinent past surgical history Family History (System 12/09/22 @ 13:25 by Rosalva Elizabeth) Mother No problems noted. Father Diabetes Social History (System 12/09/22 @ 13:25 by Rosalva Elizabeth) Household Members: Spouse Housing: House Alcohol intake: current Alcohol intake frequency: does not drink Patient Tobacco Use Status: Current everyday Tobacco user Tobacco use type: Cigarette Cigarettes Per Day: 6 e-Cigarette/Vaping Use: Never Used Second Hand Smoke Exposure: No Advance Directives: No Advance Directives Information Provided: Yes service: No Current occupational status: employed Current occupational exposures/hazards: No Office Procedures Cardiac Device Check Cardiac Device Check Details: Remote implantable loop recorder report generated 07/21/2023. No episodes of atrial fibrillation or pauses noted [id number]-Iwxfth Cardiac Interrogation, subcut cardiac rhythm monitor Procedure code (CPT) selection complete Assessment & Plan Assessment & Plan (1) Cardiac device in situ: Comment: ILR 04/2021, left chest Code(s): Z95.9 - Presence of cardiac and vascular implant and graft, unspecified Plan: See above Coding Level of Care Code Procedure Only Diagnoses Cardiac device in situ Z95.9 CPT Codes Cardiac Device Check - Cardiac Device 16: [id number]-Slcsnt Cardiac Interrogation, subcut cardiac rhythm monitor ([id number])
== END ==
PROVIDERS: PCP Internal Medicine; Visit Provider Internal Medicine Cardiovascular Disease
DX: I63.9 Cerebral infarction, unspecified (principal); Z95.9 Presence of cardiac and vascular implant and graft, unspecified
CPT/HCPCS: 93298

== ENCOUNTER → 2023-11-03 23:59 | Outpatient (BNV) | payer MEDICAID, SELFPAY ==
--- NOTE | 2023-11-20 08:58 | MHC.OFFVIS ---
Intake Visit Reasons: Remote ILR check- [employer] Allergies No Known Allergies [No Known Allergies*] Allergy (Unverified 12/09/22 13:25) atorvastatin Adverse Reaction (Unknown, Verified 03/01/23 09:30) elevated liver enzymes glipizide Adverse Reaction (Unknown, Verified 03/01/23 09:30) hypoglycemia chantix Allergy (Unknown, Uncoded 03/01/23 09:30) sweating PFSH Medical History (Updated 03/02/23 @ 00:00 by Fredrick Leavitt) Severe obesity (BMI 35.0-35.9 with comorbidity) Essential hypertension Uncontrolled hypertension Hypercholesteremia Hypertension Diabetes Surgical History (Updated 12/09/22 @ 13:25 by Rosalva Elizabeth) No pertinent past surgical history Family History (System 12/09/22 @ 13:25 by Rosalva Elizabeth) Mother No problems noted. Father Diabetes Social History (System 12/09/22 @ 13:25 by Rosalva Elizabeth) Household Members: Spouse Housing: House Alcohol intake: current Alcohol intake frequency: does not drink Patient Tobacco Use Status: Current everyday Tobacco user Tobacco use type: Cigarette Cigarettes Per Day: 6 e-Cigarette/Vaping Use: Never Used Second Hand Smoke Exposure: No Advance Directives: No Advance Directives Information Provided: Yes service: No Current occupational status: employed Current occupational exposures/hazards: No Office Procedures Cardiac Device Check Cardiac Device Check Details: Remote implantable loop recorder report generated 11/16/2022. No episodes of atrial fibrillation noted [id number]-Fsfwsc Cardiac Interrogation, subcut cardiac rhythm monitor Procedure code (CPT) selection complete Assessment & Plan Assessment & Plan (1) Cardiac device in situ: Comment: ILR 04/2021, left chest Code(s): Z95.9 - Presence of cardiac and vascular implant and graft, unspecified Category: Medical Plan: See above Coding Level of Care Code Procedure Only Diagnoses Cardiac device in situ Z95.9 CPT Codes Cardiac Device Check - Cardiac Device 16: 28350-Iroqrm Cardiac Interrogation, subcut cardiac rhythm monitor ([id number])
== END ==
PROVIDERS: PCP Internal Medicine; Visit Provider Internal Medicine Cardiovascular Disease
DX: I48.91 Unspecified atrial fibrillation (principal); Z95.818 Presence of other cardiac implants and grafts
CPT/HCPCS: 93298

== ENCOUNTER → 2023-12-08 23:59 | Outpatient (BNV) | payer SELFPAY ==
--- NOTE | 2023-12-27 13:58 | MHC.OFFVIS ---
Intake Visit Reasons: Remote ILR check- [employer] Allergies No Known Allergies [No Known Allergies*] Allergy (Unverified 12/09/22 13:25) atorvastatin Adverse Reaction (Unknown, Verified 03/01/23 09:30) elevated liver enzymes glipizide Adverse Reaction (Unknown, Verified 03/01/23 09:30) hypoglycemia chantix Allergy (Unknown, Uncoded 03/01/23 09:30) sweating PFSH Medical History (Updated 03/02/23 @ 00:00 by Fredrick Leavitt) Severe obesity (BMI 35.0-35.9 with comorbidity) Essential hypertension Uncontrolled hypertension Hypercholesteremia Hypertension Diabetes Surgical History (Updated 12/09/22 @ 13:25 by Rosalva Elizabeth) No pertinent past surgical history Family History (System 12/09/22 @ 13:25 by Rosalva Elizabeth) Mother No problems noted. Father Diabetes Social History (System 12/09/22 @ 13:25 by Rosalva Elizabeth) Household Members: Spouse Housing: House Alcohol intake: current Alcohol intake frequency: does not drink Patient Tobacco Use Status: Current everyday Tobacco user Tobacco use type: Cigarette Cigarettes Per Day: 6 e-Cigarette/Vaping Use: Never Used Second Hand Smoke Exposure: No Advance Directives: No Advance Directives Information Provided: Yes service: No Current occupational status: employed Current occupational exposures/hazards: No Office Procedures Cardiac Device Check Cardiac Device Check Details: Remote implantable loop recorder report generated 12/08/2023. No pauses or tachyarrhythmias noted 60091-Wsrchk Cardiac Interrogation, subcut cardiac rhythm monitor Procedure code (CPT) selection complete Assessment & Plan Assessment & Plan (1) Cardiac device in situ: Comment: ILR 04/2021, left chest Code(s): Z95.9 - Presence of cardiac and vascular implant and graft, unspecified Category: Medical Plan: See above Coding Level of Care Code Procedure Only Diagnoses Cardiac device in situ Z95.9 CPT Codes Cardiac Device Check - Cardiac Device 16: 31253-Hohwad Cardiac Interrogation, subcut cardiac rhythm monitor ([id number])
== END ==
PROVIDERS: PCP Internal Medicine; Visit Provider Internal Medicine Cardiovascular Disease
DX: Z45.09 Encounter for adjustment and management of other cardiac device (principal)
CPT/HCPCS: 93298

== ENCOUNTER → 2024-01-12 23:59 | Outpatient (BNV) | payer SELFPAY ==
--- NOTE | 2024-01-17 15:13 | MHC.OFFVIS ---
Intake Visit Reasons: Remote ILR check- [employer] Allergies No Known Allergies [No Known Allergies*] Allergy (Unverified 12/09/22 13:25) atorvastatin Adverse Reaction (Unknown, Verified 03/01/23 09:30) elevated liver enzymes glipizide Adverse Reaction (Unknown, Verified 03/01/23 09:30) hypoglycemia chantix Allergy (Unknown, Uncoded 03/01/23 09:30) sweating PFSH Medical History (Updated 03/02/23 @ 00:00 by Fredrick Leavitt) Severe obesity (BMI 35.0-35.9 with comorbidity) Essential hypertension Uncontrolled hypertension Hypercholesteremia Hypertension Diabetes Surgical History (Updated 12/09/22 @ 13:25 by Rosalva Elizabeth) No pertinent past surgical history Family History (System 12/09/22 @ 13:25 by Rosalva Elizabeth) Mother No problems noted. Father Diabetes Social History (System 12/09/22 @ 13:25 by Rosalva Elizabeth) Household Members: Spouse Housing: House Alcohol intake: current Alcohol intake frequency: does not drink Patient Tobacco Use Status: Current everyday Tobacco user Tobacco use type: Cigarette Cigarettes Per Day: 6 e-Cigarette/Vaping Use: Never Used Second Hand Smoke Exposure: No Advance Directives: No Advance Directives Information Provided: Yes service: No Current occupational status: employed Current occupational exposures/hazards: No Office Procedures Cardiac Device Check Cardiac Device Check Details: Remote implantable loop recorder report generated 01/12/2024. Rare PACs noted. No episodes of atrial fibrillation noted 58071-Zuzvtv Cardiac Interrogation, subcut cardiac rhythm monitor Procedure code (CPT) selection complete Assessment & Plan Assessment & Plan (1) Cardiac device in situ: Comment: ILR 04/2021, left chest Code(s): Z95.9 - Presence of cardiac and vascular implant and graft, unspecified Category: Medical Plan: See above Coding Level of Care Code Procedure Only Diagnoses Cardiac device in situ Z95.9 CPT Codes Cardiac Device Check - Cardiac Device 16: [id number]-Liadeq Cardiac Interrogation, subcut cardiac rhythm monitor ([id number])
== END ==
PROVIDERS: PCP Internal Medicine; Visit Provider Internal Medicine Cardiovascular Disease
DX: I49.3 Ventricular premature depolarization (principal); Z95.818 Presence of other cardiac implants and grafts
CPT/HCPCS: 93298

== ENCOUNTER → 2024-02-16 23:59 | Outpatient (BNV) | payer SELFPAY ==
--- NOTE | 2024-02-21 15:47 | MHC.OFFVIS ---
Intake Visit Reasons: Remote ILR check- [employer] Allergies No Known Allergies [No Known Allergies*] Allergy (Unverified 12/09/22 13:25) atorvastatin Adverse Reaction (Unknown, Verified 03/01/23 09:30) elevated liver enzymes glipizide Adverse Reaction (Unknown, Verified 03/01/23 09:30) hypoglycemia chantix Allergy (Unknown, Uncoded 03/01/23 09:30) sweating PFSH Medical History (Updated 03/02/23 @ 00:00 by Fredrick Leavitt) Severe obesity (BMI 35.0-35.9 with comorbidity) Essential hypertension Uncontrolled hypertension Hypercholesteremia Hypertension Diabetes Surgical History (Updated 12/09/22 @ 13:25 by Rosalva Elizabeth) No pertinent past surgical history Family History (System 12/09/22 @ 13:25 by Rosalva Elizabeth) Mother No problems noted. Father Diabetes Social History (System 12/09/22 @ 13:25 by Rosalva Elizabeth) Household Members: Spouse Housing: House Alcohol intake: current Alcohol intake frequency: does not drink Patient Tobacco Use Status: Current everyday Tobacco user Tobacco use type: Cigarette Cigarettes Per Day: 6 e-Cigarette/Vaping Use: Never Used Second Hand Smoke Exposure: No Advance Directives: No Advance Directives Information Provided: Yes service: No Current occupational status: employed Current occupational exposures/hazards: No Office Procedures Cardiac Device Check Cardiac Device Check Details: Remote implantable loop recorder report generated 02/16/2024. No pauses or atrial fibrillation noted [id number]-Pmpzes Cardiac Interrogation, subcut cardiac rhythm monitor Procedure code (CPT) selection complete Assessment & Plan Assessment & Plan (1) Cardiac device in situ: Comment: ILR 04/2021, left chest Code(s): Z95.9 - Presence of cardiac and vascular implant and graft, unspecified Category: Medical Plan: See above Coding Level of Care Code Procedure Only Diagnoses Cardiac device in situ Z95.9 CPT Codes Cardiac Device Check - Cardiac Device 16: [id number]-Tjyoeb Cardiac Interrogation, subcut cardiac rhythm monitor ([id number])
== END ==
PROVIDERS: PCP Internal Medicine; Visit Provider Internal Medicine Cardiovascular Disease
DX: Z45.09 Encounter for adjustment and management of other cardiac device (principal)
CPT/HCPCS: 93298

== ENCOUNTER → 2024-03-22 23:59 | Outpatient (BNV) | payer SELFPAY ==
--- NOTE | 2024-04-09 13:56 | A.OFFVIS_ITS ---
Intake Visit Reasons: Remote ILR check- [employer] Allergies No Known Allergies [No Known Allergies*] Allergy (Unverified 12/09/22 13:25) atorvastatin Adverse Reaction (Unknown, Verified 03/01/23 09:30) elevated liver enzymes glipizide Adverse Reaction (Unknown, Verified 03/01/23 09:30) hypoglycemia chantix Allergy (Unknown, Uncoded 03/01/23 09:30) sweating PFSH Medical History (Updated 03/02/23 @ 00:00 by Fredrick Leavitt) Severe obesity (BMI 35.0-35.9 with comorbidity) Essential hypertension Uncontrolled hypertension Hypercholesteremia Hypertension Diabetes Surgical History (Updated 12/09/22 @ 13:25 by Rosalva Elizabeth) No pertinent past surgical history Family History (System 12/09/22 @ 13:25 by Rosalva Elizabeth) Mother No problems noted. Father Diabetes Social History (System 12/09/22 @ 13:25 by Rosalva Elizabeth) Household Members: Spouse Housing: House Alcohol intake: current Alcohol intake frequency: does not drink Patient Tobacco Use Status: Current everyday Tobacco user Tobacco use type: Cigarette Cigarettes Per Day: 6 e-Cigarette/Vaping Use: Never Used Second Hand Smoke Exposure: No Advance Directives: No Advance Directives Information Provided: Yes service: No Current occupational status: employed Current occupational exposures/hazards: No Office Procedures Cardiac Device Check Cardiac Device Check Details: Implantable loop recorder report generated 03/22/2024. No episodes of atrial fibrillation noted [id number]-Avpwrj Cardiac Interrogation, subcut cardiac rhythm monitor Procedure code (CPT) selection complete Assessment & Plan Assessment & Plan (1) Cardiac device in situ: Comment: ILR 04/2021, left chest Code(s): Z95.9 - Presence of cardiac and vascular implant and graft, unspecified Category: Medical Plan: See above Coding Level of Care Code Procedure Only Diagnoses Cardiac device in situ Z95.9 CPT Codes Cardiac Device Check - Cardiac Device 16: [id number]-Fpirra Cardiac Interrogation, wyatt bcut cardiac rhythm monitor ([id number])
== END ==
PROVIDERS: PCP Internal Medicine; Visit Provider Internal Medicine Cardiovascular Disease
DX: Z45.09 Encounter for adjustment and management of other cardiac device (principal)
CPT/HCPCS: 93298

== ENCOUNTER → 2024-04-21 23:59 | Outpatient (BNV) | payer OTHER, SELFPAY ==
--- NOTE | 2024-04-30 16:22 | MHC.OFFVIS ---
Intake Visit Reasons: Remote ILR check- [employer] Allergies No Known Allergies [No Known Allergies*] Allergy (Unverified 12/09/22 13:25) atorvastatin Adverse Reaction (Unknown, Verified 03/01/23 09:30) elevated liver enzymes glipizide Adverse Reaction (Unknown, Verified 03/01/23 09:30) hypoglycemia chantix Allergy (Unknown, Uncoded 03/01/23 09:30) sweating PFSH Medical History (Updated 03/02/23 @ 00:00 by Fredrick Leavitt) Severe obesity (BMI 35.0-35.9 with comorbidity) Essential hypertension Uncontrolled hypertension Hypercholesteremia Hypertension Diabetes Surgical History (Updated 12/09/22 @ 13:25 by Rosalva Elizabeth) No pertinent past surgical history Family History (System 12/09/22 @ 13:25 by Rosalva Elizabeth) Mother No problems noted. Father Diabetes Social History (System 12/09/22 @ 13:25 by Rosalva Elizabeth) Household Members: Spouse Housing: House Alcohol intake: current Alcohol intake frequency: does not drink Patient Tobacco Use Status: Current everyday Tobacco user Tobacco use type: Cigarette Cigarettes Per Day: 6 e-Cigarette/Vaping Use: Never Used Second Hand Smoke Exposure: No Advance Directives: No Advance Directives Information Provided: Yes service: No Current occupational status: employed Current occupational exposures/hazards: No Office Procedures Cardiac Device Check Cardiac Device Check Details: Remote implantable loop recorder report generated 04/21/2024. No arrhythmias or pauses noted [id number]-Uqroht Cardiac Interrogation, subcut cardiac rhythm monitor Procedure code (CPT) selection complete Assessment & Plan Assessment & Plan (1) Cardiac device in situ: Comment: ILR 04/2021, left chest Code(s): Z95.9 - Presence of cardiac and vascular implant and graft, unspecified Category: Medical Plan: See above Coding Level of Care Code Procedure Only Diagnoses Cardiac device in situ Z95.9 CPT Codes Cardiac Device Check - Cardiac Device 16: 61822-Tbpair Cardiac Interrogation, subcut cardiac rhythm monitor ([id number])
== END ==
PROVIDERS: PCP Internal Medicine; Visit Provider Internal Medicine Cardiovascular Disease
DX: Z45.09 Encounter for adjustment and management of other cardiac device (principal)
CPT/HCPCS: 93298

== ENCOUNTER → 2024-05-31 23:59 | Outpatient (BNV) | payer OTHER, SELFPAY ==
--- NOTE | 2024-06-07 17:11 | MHC.OFFVIS ---
Intake Visit Reasons: Remote ILR check- [employer] Allergies No Known Allergies [No Known Allergies*] Allergy (Unverified 12/09/22 13:25) atorvastatin Adverse Reaction (Unknown, Verified 03/01/23 09:30) elevated liver enzymes glipizide Adverse Reaction (Unknown, Verified 03/01/23 09:30) hypoglycemia chantix Allergy (Unknown, Uncoded 03/01/23 09:30) sweating PFSH Medical History (Updated 03/02/23 @ 00:00 by Fredrick Leavitt) Severe obesity (BMI 35.0-35.9 with comorbidity) Essential hypertension Uncontrolled hypertension Hypercholesteremia Hypertension Diabetes Surgical History (Updated 12/09/22 @ 13:25 by Rosalva Elizabeth) No pertinent past surgical history Family History (System 12/09/22 @ 13:25 by Rosalva Elizabeth) Mother No problems noted. Father Diabetes Social History (System 12/09/22 @ 13:25 by Rosalva Elizabeth) Household Members: Spouse Housing: House Alcohol intake: current Alcohol intake frequency: does not drink Patient Tobacco Use Status: Current everyday Tobacco user Tobacco use type: Cigarette Cigarettes Per Day: 6 e-Cigarette/Vaping Use: Never Used Second Hand Smoke Exposure: No Advance Directives: No Advance Directives Information Provided: Yes service: No Current occupational status: employed Current occupational exposures/hazards: No Office Procedures Cardiac Device Check Cardiac Device Check Details: Remote implantable loop recorder report generated 06/03/2024. No episodes of atrial fibrillation or pauses noted. Isolated PACs noted [id number]-Mdpgdt Cardiac Interrogation, subcut cardiac rhythm monitor Procedure code (CPT) selection complete Assessment & Plan Assessment & Plan (1) Cardiac device in situ: Comment: ILR 04/2021, left chest Code(s): Z95.9 - Presence of cardiac and vascular implant and graft, unspecified Category: Medical Plan: See above Coding Level of Care Code Procedure Only Diagnoses Cardiac device in situ Z95.9 CPT Codes Cardiac Device Check - Cardiac Device 16: 16522-Jnmkdt Cardiac Interrogation, subcut cardiac rhythm monitor ([id number])
== END ==
PROVIDERS: PCP Internal Medicine; Visit Provider Internal Medicine Cardiovascular Disease
DX: I49.1 Atrial premature depolarization (principal); Z95.9 Presence of cardiac and vascular implant and graft, unspecified
CPT/HCPCS: 93298

== ENCOUNTER → 2024-07-05 23:59 | Outpatient (BNV) | payer SELFPAY ==
--- NOTE | 2024-07-15 15:41 | MHC.OFFVIS ---
Intake Visit Reasons: Remote ILR check- [employer] Allergies No Known Allergies [No Known Allergies*] Allergy (Unverified 12/09/22 13:25) atorvastatin Adverse Reaction (Unknown, Verified 03/01/23 09:30) elevated liver enzymes glipizide Adverse Reaction (Unknown, Verified 03/01/23 09:30) hypoglycemia chantix Allergy (Unknown, Uncoded 03/01/23 09:30) sweating PFSH Medical History (Updated 03/02/23 @ 00:00 by rFedrick Leavitt) Severe obesity (BMI 35.0-35.9 with comorbidity) Essential hypertension Uncontrolled hypertension Hypercholesteremia Hypertension Diabetes Surgical History (Updated 12/09/22 @ 13:25 by Rosalva Elizabeth) No pertinent past surgical history Family History (System 12/09/22 @ 13:25 by Rosalva Elizabeth) Mother No problems noted. Father Diabetes Social History (System 12/09/22 @ 13:25 by Rosalva Elizabeth) Household Members: Spouse Housing: House Alcohol intake: current Alcohol intake frequency: does not drink Patient Tobacco Use Status: Current everyday Tobacco user Tobacco use type: Cigarette Cigarettes Per Day: 6 e-Cigarette/Vaping Use: Never Used Second Hand Smoke Exposure: No Advance Directives: No Advance Directives Information Provided: Yes service: No Current occupational status: employed Current occupational exposures/hazards: No Office Procedures Cardiac Device Check Cardiac Device Check Details: Remote implantable loop recorder report generated 07/05/2024. No episodes of atrial fibrillation or pauses noted [id number] Cardiac Interrogation, subcut cardiac rhythm monitor Procedure code (CPT) selection complete Assessment & Plan Assessment & Plan (1) Cardiac device in situ: Comment: ILR 04/2021, left chest Code(s): Z95.9 - Presence of cardiac and vascular implant and graft, unspecified Category: Medical Plan: See above Coding Level of Care Code Procedure Only Diagnoses Cardiac device in situ Z95.9 CPT Codes Cardiac Device Check - Cardiac Device 16: [id number] Cardiac Interrogation, subcut cardiac rhythm monitor ([id number])
== END ==
PROVIDERS: PCP Internal Medicine; Visit Provider Internal Medicine Cardiovascular Disease
DX: Z45.09 Encounter for adjustment and management of other cardiac device (principal)
CPT/HCPCS: 93298

== ENCOUNTER → 2024-07-30 23:59 | Outpatient (BNV) | payer OTHER, SELFPAY ==
--- NOTE | 2024-07-31 14:59 | MHC.OFFVIS ---
Intake Visit Reasons: Remote ILR check- [employer] Allergies No Known Allergies [No Known Allergies*] Allergy (Unverified 12/09/22 13:25) atorvastatin Adverse Reaction (Unknown, Verified 03/01/23 09:30) elevated liver enzymes glipizide Adverse Reaction (Unknown, Verified 03/01/23 09:30) hypoglycemia chantix Allergy (Unknown, Uncoded 03/01/23 09:30) sweating PFSH Medical History (Updated 03/02/23 @ 00:00 by Fredrick Leavitt) Severe obesity (BMI 35.0-35.9 with comorbidity) Essential hypertension Uncontrolled hypertension Hypercholesteremia Hypertension Diabetes Surgical History (Updated 12/09/22 @ 13:25 by Rosalva Elizabeth) No pertinent past surgical history Family History (System 12/09/22 @ 13:25 by Rosalva Elizabeth) Mother No problems noted. Father Diabetes Social History (System 12/09/22 @ 13:25 by Rosalva Elizabeth) Household Members: Spouse Housing: House Alcohol intake: current Alcohol intake frequency: does not drink Patient Tobacco Use Status: Current everyday Tobacco user Tobacco use type: Cigarette Cigarettes Per Day: 6 e-Cigarette/Vaping Use: Never Used Second Hand Smoke Exposure: No Advance Directives: No Advance Directives Information Provided: Yes service: No Current occupational status: employed Current occupational exposures/hazards: No Office Procedures Cardiac Device Check Cardiac Device Check Details: Remote implantable loop recorder report generated 07/30/2024. No arrhythmias or atrial fibrillation noted. No pauses noted. [id number] Cardiac Interrogation, subcut cardiac rhythm monitor Procedure code (CPT) selection complete Assessment & Plan Assessment & Plan (1) Cardiac device in situ: Comment: ILR 04/2021, left chest Code(s): Z95.9 - Presence of cardiac and vascular implant and graft, unspecified Category: Medical Plan: See above Coding Level of Care Code Procedure Only Diagnoses Cardiac device in situ Z95.9 CPT Codes Cardiac Device Check - Cardiac Device 16: [id number] Cardiac Interrogation, subcut cardiac rhythm monitor ([id number])
== END ==
PROVIDERS: PCP Internal Medicine; Visit Provider Internal Medicine Cardiovascular Disease
DX: Z45.09 Encounter for adjustment and management of other cardiac device (principal)
CPT/HCPCS: 93298

== ENCOUNTER → 2024-08-09 23:59 | Outpatient (BNV) | payer OTHER, SELFPAY ==
--- NOTE | 2024-08-19 15:36 | MHC.OFFVIS ---
Intake Visit Reasons: REmote ILR check- [employer] Allergies No Known Allergies [No Known Allergies*] Allergy (Unverified 12/09/22 13:25) atorvastatin Adverse Reaction (Unknown, Verified 03/01/23 09:30) elevated liver enzymes glipizide Adverse Reaction (Unknown, Verified 03/01/23 09:30) hypoglycemia chantix Allergy (Unknown, Uncoded 03/01/23 09:30) sweating PFSH Medical History (Updated 03/02/23 @ 00:00 by Fredrick Leavitt) Severe obesity (BMI 35.0-35.9 with comorbidity) Essential hypertension Uncontrolled hypertension Hypercholesteremia Hypertension Diabetes Surgical History (Updated 12/09/22 @ 13:25 by Rosalva Elizabeth) No pertinent past surgical history Family History (System 12/09/22 @ 13:25 by Rosalva Elizabeth) Mother No problems noted. Father Diabetes Social History (System 12/09/22 @ 13:25 by Rosalva Elizabeth) Household Members: Spouse Housing: House Alcohol intake: current Alcohol intake frequency: does not drink Patient Tobacco Use Status: Current everyday Tobacco user Tobacco use type: Cigarette Cigarettes Per Day: 6 e-Cigarette/Vaping Use: Never Used Second Hand Smoke Exposure: No Advance Directives: No Advance Directives Information Provided: Yes service: No Current occupational status: employed Current occupational exposures/hazards: No Office Procedures Cardiac Device Check Cardiac Device Check Details: Remote implantable loop recorder report generated 08/09/2024. No episodes of atrial fibrillation or pauses noted [id number] Cardiac Interrogation, subcut cardiac rhythm monitor Procedure code (CPT) selection complete Assessment & Plan Assessment & Plan (1) Cardiac device in situ: Comment: ILR 04/2021, left chest Code(s): Z95.9 - Presence of cardiac and vascular implant and graft, unspecified Category: Medical Plan: See above Coding Level of Care Code Procedure Only Diagnoses Cardiac device in situ Z95.9 CPT Codes Cardiac Device Check - Cardiac Device 16: [id number] Cardiac Interrogation, subcut cardiac rhythm monitor ([id number])
== END ==
PROVIDERS: PCP Internal Medicine; Visit Provider Internal Medicine Cardiovascular Disease
DX: Z45.09 Encounter for adjustment and management of other cardiac device (principal)
CPT/HCPCS: 93298

== ENCOUNTER → 2024-09-13 23:59 | Outpatient (BNV) | payer OTHER, SELFPAY ==
--- NOTE | 2024-09-17 13:15 | MHC.OFFVIS ---
Intake Visit Reasons: REmote ILR check- [employer] Allergies No Known Allergies [No Known Allergies*] Allergy (Unverified 12/09/22 13:25) atorvastatin Adverse Reaction (Unknown, Verified 03/01/23 09:30) elevated liver enzymes glipizide Adverse Reaction (Unknown, Verified 03/01/23 09:30) hypoglycemia chantix Allergy (Unknown, Uncoded 03/01/23 09:30) sweating PFSH Medical History (Updated 03/02/23 @ 00:00 by Fredrick Leavitt) Severe obesity (BMI 35.0-35.9 with comorbidity) Essential hypertension Uncontrolled hypertension Hypercholesteremia Hypertension Diabetes Surgical History (Updated 12/09/22 @ 13:25 by Rosalva Elizabeth) No pertinent past surgical history Family History (System 12/09/22 @ 13:25 by Rosalva Elizabeth) Mother No problems noted. Father Diabetes Social History (System 12/09/22 @ 13:25 by Rosalva Elizabeth) Household Members: Spouse Housing: House Alcohol intake: current Alcohol intake frequency: does not drink Patient Tobacco Use Status: Current everyday Tobacco user Tobacco use type: Cigarette Cigarettes Per Day: 6 e-Cigarette/Vaping Use: Never Used Second Hand Smoke Exposure: No Advance Directives: No Advance Directives Information Provided: Yes service: No Current occupational status: employed Current occupational exposures/hazards: No Office Procedures Cardiac Device Check Cardiac Device Check Details: Remote implantable loop recorder report generated 09/13/2024. No episodes of atrial fibrillation or pauses noted [id number] Cardiac Interrogation, subcut cardiac rhythm monitor Procedure code (CPT) selection complete Assessment & Plan Assessment & Plan (1) Cardiac device in situ: Comment: ILR 04/2021, left chest Code(s): Z95.9 - Presence of cardiac and vascular implant and graft, unspecified Category: Medical Plan: See above Coding Level of Care Code Procedure Only Diagnoses Cardiac device in situ Z95.9 CPT Codes Cardiac Device Check - Cardiac Device 16: [id number] Cardiac Interrogation, subcut cardiac rhythm monitor ([id number])
== END ==
PROVIDERS: PCP Internal Medicine; Visit Provider Internal Medicine Cardiovascular Disease
DX: Z45.09 Encounter for adjustment and management of other cardiac device (principal)
CPT/HCPCS: 93298

== ENCOUNTER → 2024-11-22 23:59 | Outpatient (BNV) | payer SELFPAY ==
--- NOTE | 2024-12-02 15:55 | MHC.OFFVIS ---
Intake Visit Reasons: Remote ILR check- [employer] Allergies No Known Allergies (No Known Allergies*) Allergy (Unverified 12/09/22 13:25) atorvastatin Adverse Reaction (Unknown, Verified 03/01/23 09:30) elevated liver enzymes glipizide Adverse Reaction (Unknown, Verified 03/01/23 09:30) hypoglycemia chantix Allergy (Unknown, Uncoded 03/01/23 09:30) sweating PFSH Medical History (Updated 03/02/23 @ 00:00 by Fredrick Leavitt) Severe obesity (BMI 35.0-35.9 with comorbidity) Essential hypertension Uncontrolled hypertension Hypercholesteremia Hypertension Diabetes Surgical History (Updated 12/09/22 @ 13:25 by Rosalva Elizabeth) No pertinent past surgical history Family History (System 12/09/22 @ 13:25 by Rosalva Elizabeth) Mother No problems noted. Father Diabetes Social History (System 12/09/22 @ 13:25 by Rosalva Elizabeth) Household Members: Spouse Housing: House Alcohol intake: current Alcohol intake frequency: does not drink Patient Tobacco Use Status: Current everyday Tobacco user Tobacco use type: Cigarette Cigarettes Per Day: 6 e-Cigarette/Vaping Use: Never Used Second Hand Smoke Exposure: No Advance Directives: No Advance Directives Information Provided: Yes service: No Current occupational status: employed Current occupational exposures/hazards: No Office Procedures Cardiac Device Check Cardiac Device Check Details: Remote implantable loop recorder report generated 11/24/2024. No arrhythmias or atrial fibrillation or pauses noted [id number] Cardiac Interrogation, subcut cardiac rhythm monitor Procedure code (CPT) selection complete Assessment & Plan Assessment & Plan (1) Cardiac device in situ: Comment: ILR 04/2021, left chest Code(s): Z95.9 - Presence of cardiac and vascular implant and graft, unspecified Category: Medical Plan: See above Coding Level of Care Code Procedure Only Diagnoses Cardiac device in situ Z95.9 CPT Codes Cardiac Device Check - Cardiac Device 16: [id number] Cardiac Interrogation, subcut cardiac rhythm monitor ([id number])
== END ==
PROVIDERS: PCP Internal Medicine; Visit Provider Internal Medicine Cardiovascular Disease
DX: Z45.09 Encounter for adjustment and management of other cardiac device (principal)
CPT/HCPCS: 93298

== ENCOUNTER → 2024-12-27 23:59 | Outpatient (BNV) | payer SELFPAY ==
--- NOTE | 2025-01-07 12:23 | MHC.OFFVIS ---
Intake Visit Reasons: Remote ILR check- [employer] Allergies No Known Allergies (No Known Allergies*) Allergy (Unverified 12/09/22 13:25) atorvastatin Adverse Reaction (Unknown, Verified 03/01/23 09:30) elevated liver enzymes glipizide Adverse Reaction (Unknown, Verified 03/01/23 09:30) hypoglycemia chantix Allergy (Unknown, Uncoded 03/01/23 09:30) sweating PFSH Medical History (Updated 03/02/23 @ 00:00 by Fredrick Leavitt) Severe obesity (BMI 35.0-35.9 with comorbidity) Essential hypertension Uncontrolled hypertension Hypercholesteremia Hypertension Diabetes Surgical History (Updated 12/09/22 @ 13:25 by Rosalva Elizabeth) No pertinent past surgical history Family History (System 12/09/22 @ 13:25 by Rosalva Elizabeth) Mother No problems noted. Father Diabetes Social History (System 12/09/22 @ 13:25 by Rosalva Elizabeth) Household Members: Spouse Housing: House Alcohol intake: current Alcohol intake frequency: does not drink Patient Tobacco Use Status: Current everyday Tobacco user Tobacco use type: Cigarette Cigarettes Per Day: 6 e-Cigarette/Vaping Use: Never Used Second Hand Smoke Exposure: No Advance Directives: No Advance Directives Information Provided: Yes service: No Current occupational status: employed Current occupational exposures/hazards: No Office Procedures Cardiac Device Check Cardiac Device Check Details: Remote implantable loop recorder report generated 12/27/2024. No arrhythmias or pauses noted [id number] Cardiac Interrogation, subcut cardiac rhythm monitor Procedure code (CPT) selection complete Assessment & Plan Assessment & Plan (1) Cardiac device in situ: Comment: ILR 04/2021, left chest Code(s): Z95.9 - Presence of cardiac and vascular implant and graft, unspecified Category: Medical Plan: See above Coding Level of Care Code Procedure Only Diagnoses Cardiac device in situ Z95.9 CPT Codes Cardiac Device Check - Cardiac Device 16: [id number] Cardiac Interrogation, subcut cardiac rhythm monitor ([id number])
== END ==
PROVIDERS: PCP Internal Medicine; Visit Provider Internal Medicine Cardiovascular Disease
DX: Z45.09 Encounter for adjustment and management of other cardiac device (principal)
CPT/HCPCS: 93298

== ENCOUNTER → 2025-04-29 12:44 | Outpatient (BNV) | payer SELFPAY | PROVIDERS: PCP Internal Medicine | DX: Z45.010 Encounter for checking and testing of cardiac pacemaker pulse generator [battery] (principal); Z95.818 Presence of other cardiac implants and grafts | CPT/HCPCS: 93298 ==